=== PATIENT | female | born 1935 | race Hispanic/Latino ===

== ENCOUNTER 2017-03-30 23:31 | Inpatient (IN) | payer MEDICARE, OTHER ==
[2017-03-30] MEDS ORDERED: Sodium Chloride 0.9% 1,000 ML IV ONE (23:51)
--- NOTE | 2017-03-30 23:52 | C.PDOC ---
Chief Complaint (Nursing): Cardiac Arrest Past Medical History Vital Signs: Last Vital Signs Temp 97 F L 03/30/17 23:55 Pulse 87 03/30/17 23:36 Resp 12 03/30/17 23:36 BP 127/59 L 03/30/17 23:36 Pulse Ox 100 03/31/17 01:24 - Medical History PMH: HTN, Hypercholesterolemia, TIA Denies: Asthma, Chronic Kidney Disease Family History: States: Unknown Family Hx - Social History Hx Alcohol Use: No Hx Substance Use: No - Immunization History Hx Tetanus Toxoid Vaccination: No Hx Influenza Vaccination: No Hx Pneumococcal Vaccination: No ED Course And Treatment - Laboratory Results Result Diagrams: 03/31/17 01:15 03/30/17 23:55 O2 Sat by Pulse Oximetry: 100 - CT Scan/US CT Head Other Rad Studies (CT/US): Read By Radiologist, Radiology Report Reviewed CT/US Interpretation: IMPRESSION: No acute intracranial hemorrhage, or suspicious mass effect. Disposition Discussed With DrKeila: Mack Elliott Doctor Will See Patient In The: Hospital Counseled Patient/Family Regarding: Diagnosis - Disposition Disposition: HOSPITALIZED Disposition Time: 00:37 Condition: GUARDED - Clinical Impression Clinical Impression: Respiratory arrest, Cardiac arrest Critical Care Time - Critical Care Note Total Time (in mins): 30 Documented critical care: time excludes all time spent performing seperately billable procedures.
[2017-03-30] MEDS ORDERED: Sodium Chloride 0.9% 1,000 ML ONE (23:58)
[2017-03-31 00:15] LABS: BASO # 0.3 K/uL (0.0-0.2); BASO % 1.1 % (0.0-2.0); MEAN CORPUSCULAR HGB CONC 26.2 g/dL (33.0-37.0)
[2017-03-31 00:25] LABS: POTASSIUM 4.5 mmol/L (3.6-5.2)
[2017-03-31 00:28] LABS: BILIRUBIN,TOTAL 0.8 mg/dL (0.2-1.3); TOTAL PROTEIN 6.3 g/dL (6.3-8.3)
[2017-03-31 00:29] LABS: CALCIUM 7.6 mg/dl (8.6-10.4)
[2017-03-31 00:33] LABS: INR 1.2
[2017-03-31 00:40] LABS: TROPONIN I 0.055 ng/mL (0.00-0.120)
[2017-03-31 00:41] LABS: ABG MECHANICAL RATE 14; ATERIAL BLOOD GAS PEEP 5; DRAW SITE RB
[2017-03-31 00:43] LABS: EOS # 0.3 K/uL (0.0-0.7); EOS % 1.3 % (0.0-4.0); HEMATOCRIT 19.9 % (34.0-47.0); LYMPH % 28.2 % (20.0-40.0); MEAN CORPUSCULAR HEMOGLOBIN 19.4 pg (27.0-31.0); MEAN PLATELET VOLUME 8.2 fL (7.2-11.7); MONO # 0.8 K/uL (0.0-0.8); MONO % 3.4 % (0.0-10.0); NRBC % 0.5 % (0.0-2.0); PLATELET COUNT 405 K/uL (130-400); RED CELL DISTRIBUTION WIDTH 20.4 % (11.5-14.5); WHITE BLOOD COUNT 24.7 K/uL (4.8-10.8)
[2017-03-31 01:17] LABS: HEMATOCRIT 18.2 % (34.0-47.0); MEAN CELL VOLUME 71.4 fL (81.0-99.0); MEAN CORPUSCULAR HEMOGLOBIN 19.6 pg (27.0-31.0); MEAN CORPUSCULAR HGB CONC 27.4 g/dL (33.0-37.0); MEAN PLATELET VOLUME 7.3 fL (7.2-11.7); WHITE BLOOD COUNT 18.9 K/uL (4.8-10.8)
--- NOTE | 2017-03-31 01:23 | CP.PCM.HP ---
<Kaushik Nguyen - Last Filed: 03/31/17 05:18> History of Present Illness - History of Present Illness History of Present Illness: CC: Unresponsive patient HPI: 82yo Female with PMHx TIA, HTN, Hypercholesterolemia, Blepharospasm - brought in via EMS after being found unresponsive by her son in their apartment. All history conveyed by patients Son and Grandson. Patient was last seen at 20:30 this evening watching TV. No unusual events noted during this day. At 22:00, the patient was found face down into the couch, resting over the arm rest, with her walker tipper over next to her. The son believes she was walking back from the bathroom, but he did not hear anything unusual, and is unsure how long she was in that position. He notes that over the past week, his mother appeared more pale and seemed to move slower than usual. She fell after dinner yesterday, however he reports these falls occur periodically. He denies any LOC, head trauma, abnormal speech/behavior, or general injury following this fall. Once EMS arrived, she was found to be in cardio-pulmonary arrest. Per nursing report, they performed CPR for 15 minutes and administered 2 doses of epinephrin before regaining pulses. An LMA was inserted in the field. ED Course: Patient was intubated in the ED. She received NS 1L bolus, NS 100cc/ hr, and Protonix 40mg IVP. Patient will be transferred to ICU. She remains unresponsive. PMHx: TIA (2013, 2012, and 2 others), HTN, Hypercholesterolemia, Blepharospasm PSHx: Hip fracture 2011 Meds: f/u with [facility] (Plavix 75mg PO qd; Simvastatin; Metoprolol; Amlodipine) Allergies: PCNs FamHx: Mom of esophageal CA at 75; Father of [place] in 50's SocHx: quit Tobacco 1974. Smoked 1/2ppd x 20yrs; Family denied ETOH or illicit drug use; Lives in apt with Son; Retired bookkeeper receptionist. PMD: [place] Present on Admission - Present on Admission Any Indicators Present on Admission: No Review of Systems - Review of Systems Systems not reviewed;Unavailable: Acuity of Condition, Altered Mental Status ( patient is unresponsive) Past Patient History - Infectious Disease Hx of Infectious Diseases: None - Past Social History Smoking Status: Never Smoked - CARDIAC Hx Hypercholesterolemia: Yes Hx Hypertension: Yes - PULMONARY Hx Asthma: No - NEUROLOGICAL Hx Transient Ischemic Attacks (TIA): Yes - RENAL Hx Chronic Kidney Disease: No - INTEGUMENTARY Hx Dermatological Problems: No - MUSCULOSKELETAL/RHEUMATOLOGICAL Hx Musculoskeletal Disorders: No - PSYCHIATRIC Hx Substance Use: No - SURGICAL HISTORY Hx Cataract Extraction: Yes - ANESTHESIA Hx Anesthesia: Yes Hx Anesthesia Reactions: No Meds Allergies/Adverse Reactions: Allergies Allergy/AdvReac Type Severity Reaction Status Date / Time Penicillins Allergy Verified 03/30/17 23:43 Physical Exam - Constitutional Appears: No Acute Distress, Other (unresponsive) - Head Exam Head Exam: ATRAUMATIC, NORMAL INSPECTION - Eye Exam Eye Exam: absent: Conjunctival injection, EOMI, PERRL Pupil Exam: Fixed, Unequal. absent: PERRL Additional comments: -Left pupil dilated/fixed -Right pupil constricted, however responsive to light. -b/l corneal reflex intact. - ENT Exam ENT Exam: Mucous Membranes Dry - Neck Exam Neck exam: Negative for: Lymphadenopathy - Respiratory Exam Respiratory Exam: Clear to Auscultation Bilateral (transmitted sounds from respirator/intubation), NORMAL BREATHING PATTERN - Cardiovascular Exam Cardiovascular Exam: REGULAR RHYTHM, +S1, +S2, Systolic Murmur. absent: Rubs - GI/Abdominal Exam GI & Abdominal Exam: Distended (possibly from intubation), Normal Bowel Sounds, Soft Additional comments: - OG tube in place to help decompress air in stomach - Rectal Exam Rectal Exam: Bloody Stool (mild). absent: Black Stool - Extremities Exam Extremities exam: Positive for: pedal pulses present. Negative for: normal capillary refill, pedal edema Additional comments: -LE cool to palpation - Neurological Exam Neurological exam: Altered Additional comments: Patient unresponsive - Skin Skin Exam: Dry, Intact, Pallor Results - Vital Signs Recent Vital Signs: Last Vital Signs Temp 97 F L 03/30/17 23:55 Pulse 87 03/30/17 23:36 Resp 12 03/30/17 23:36 BP 127/59 L 03/30/17 23:36 Pulse Ox 100 03/31/17 00:37 - Labs Result Diagrams: 03/31/17 01:15 03/31/17 04:40 Labs: Laboratory Results - last 24 hr 03/30/17 03/30/17 03/30/17 23:54 23:55 23:55 WBC 24.7 H RBC 2.69 L Hgb 5.2 L* Hct 19.9 L MCV 74.0 L MCH 19.4 L MCHC 26.2 L RDW 20.4 H Plt Count 405 H MPV 8.2 Neut % (Auto) 66.0 Lymph % (Auto) 28.2 [place] % (Auto) 3.4 Eos % (Auto) 1.3 Baso % (Auto) 1.1 Neut # 16.3 H Lymph # 7.0 H [place] # 0.8 Eos # 0.3 Baso # 0.3 H PT 13.9 H INR 1.2 APTT 49 H Puncture Site pCO2 pO2 HCO3 ABG pH ABG Total CO2 ABG O2 Saturation ABG Base Excess Hernandez Test ABG Potassium A-a O2 Difference Respiratory Index Glucose Lactate Mechanical Rate FiO2 Tidal Volume PEEP Crit Value Called To Crit Value Called By Crit Value Read Back Blood Gas Notified Time Sodium Potassium Chloride Anion Gap BUN Creatinine Est GFR ( Amer) Est GFR (Non-Af Amer) POC Glucose (mg/dL) 286 H Random Glucose Calcium Total Bilirubin AST ALT Alkaline Phosphatase Troponin I Total Protein Albumin Globulin Albumin/Globulin Ratio Arterial Blood Potassium 03/30/17 03/31/17 23:55 00:37 WBC RBC Hgb Hct MCV MCH MCHC RDW Plt Count MPV Neut % (Auto) Lymph % (Auto) [place] % (Auto) Eos % (Auto) Baso % (Auto) Neut # Lymph # [place] # Eos # Baso # PT INR APTT Puncture Site Rb pCO2 40 pO2 487 H HCO3 12.4 L ABG pH 7.11 L* ABG Total CO2 13.9 L ABG O2 Saturation 97.6 ABG Base Excess -16.2 L Hernandez Test Na ABG Potassium 4.4 A-a O2 Difference 176.0 Respiratory Index 0.4 Glucose 239 H Lactate 9.4 H* Mechanical Rate 14 FiO2 100.0 Tidal Volume 450 PEEP 5 Crit Value Called To Dr. bailon Crit Value Called By Daniel aircraft painter Crit Value Read Back Y Blood Gas Notified Time 41 Sodium 138 139.0 Potassium 4.5 Chloride 104 110.0 H Anion Gap 29 H BUN 10 Creatinine 1.1 Est GFR ( Amer) 58 Est GFR (Non-Af Amer) 48 POC Glucose (mg/dL) Random Glucose 268 H Calcium 7.6 L Total Bilirubin 0.8 AST 81 H ALT 22 Alkaline Phosphatase 74 Troponin I 0.0550 Total Protein 6.3 Albumin 3.1 L Globulin 3.2 Albumin/Globulin Ratio 1.0 Arterial Blood Potassium 4.4 Assessment & Plan - Assessment and Plan (Free Text) Assessment: Note: Patient sent directly to ICU from ED. Cardio Pulmonary Arrest - CT head w/o contrast - No acute intracranial hemorrhage, or suspicious mass effect. - Intubated in ED. - Hx TIA (2013, 2011, and 2 others) - no cooling since drop of hb - f/u echocardiogram - Hold asa - no b-blockers (bradycardia) or radha - most likely has ARF even though RF seems to be wnl, no baseline available. Anemia - Hgb 5.2, Hct 19.9, MCV 74 - transfuse 3 Units of blood - most likely drop slowly over a few days, lactate most likely high due to dehydration/ arrest - coagulation profile wnl Encephalopathy - very poor neurological exam - recent twitching (bad sign) - f/u eeg - f/u MRI/MRA head and neck in am Acute metabolic acidosis - 150 mEq of NaHCO3, bicarbonate drip - recheck bmp with electrolytes Leukocytosis WBC 24.7. Astreonam 1GM IVPB Q8H Diarrhea - flexiseal - f/u cultures Hyperglycemia - glucose 286 - most likely DM since BS elevated, note taking any meds Hx Hypertension - meds unknown. Possibly Metoprolol, Amlodipine Hx Hypercholesterolemia - meds unknown. Possibly Simvastatin. Prophylaxis - SCDs - Protonix 40mg IVP qd - Date & Time Date: 03/31/17 Time: 00:20 <Mack Elliott P - Last Filed: 04/06/17 19:45> Results - Vital Signs Recent Vital Signs: Last Vital Signs Temp 97.6 F 04/03/17 12:00 Pulse 91 H 04/03/17 12:01 Resp 15 04/03/17 12:01 BP 176/89 H 04/03/17 12:01 Pulse Ox 100 04/03/17 12:01 - Labs Result Diagrams: 04/03/17 06:43 04/03/17 06:43 Attending/Attestation - Attestation I have personally seen and examined this patient.: Yes I have fully participated in the care of the patient.: Yes I have reviewed all pertinent clinical information: Yes
[2017-03-31] MEDS ORDERED: SODIUM BICARBONATE IV SCH (02:30)
[2017-03-31] MEDS ORDERED: DEXTROSE IV SCH (02:30)
[2017-03-31] MEDS ORDERED: WATER IV SCH (02:30)
[2017-03-31 02:39] LABS: ABG MECHANICAL RATE 14; ATERIAL BLOOD GAS PEEP 5; DRAW SITE RB
[2017-03-31] MEDS ORDERED: Sodium Bicarbonate (8.4%) 50 Meq Syringe IVP ONE (02:52)
--- NOTE | 2017-03-31 02:52 | CP.PCM.CON ---
History of Present Illness - History of Present Illness History of Present Illness: Patient seen and examined in ICU. History obtained from notes and family. As per story patient was found by son at 2200 facing down into the arm rest of the couch, last seen awake at 2030 watching TV. As per the family she has been in her usual state of health, the only change noted by the family over the past week is looking more pale and moving slower than usual. She lives with the family and is able to take care of ADL and walks with a walker. Last hospitalization about 3 years back. Had one twitching movement of face when stimulated in ICU, lasted a couple of seconds, stopped on it's own. EMS was called, found the patient in asystole, performed CPR for 15 mn and gave 2 rounds of epinephrine before ROSC, LMA inserted in the field and intubated in ER. On my exam no response to noise/deep painful stimuli, breaths over the ventilator, pupils not reactive to light, left pupil 4 mm, right pupil 2 mm, good corneal reflex, very very weak cough, no gag. She has had 3 bm of brown stool, creamy. Labs remarkable for metabolic acidosis, anemia. ros unable Allergic to PNC, her face gets very swollen PMH: TIA 4 times, most recent in 2011 and 2013 HTN HLD Blepharospasm No hx of DM, but BS elevated social: ex-smoker, smoked for 20 years FH: mother form esophageal CA at 75 father from [place] in his 50's home meds: plavix 75 mg dailyl simvastatin metoprolol amlodipine benadryl cetrizine clonazepam stool softener pe: bp 96/54, hr 55 bpm, rr 14 bpm, O2 97% on 30% FiO2, afebrile 82 elderly lady, looks pale s1, s2 sinus bradycardia, systolic aortic murmur lungs good bilateral air of entry abdomen global, soft, non tender, no masses legs with bilateral pitting edema skin dry, no openings neurological exam as described above a/p: cardiac arrest: no cooling since drop of hb and noted pale/initial rhythm asystole. echocardiogram, most likely DM since BS elevated, nota taking any meds , for now hold asa, only stating, no b-blockers (bradycardia) or radha, most likely has ARF even though RF seems to be wnl, no baselin available. Encephalopathy, very poor neurological, exam, recent twitching bad sign, eeg, MRI/MRA head and neck in am Anemia: most likely drop slowly over a few days, lactate most likely high due to dehydration, arrest, transfuse 3 Units of blood now, coagulation profile wnl Diarrhea: flexiseal, send cultures Cover with broad expecturm antibiotics: send UA, blood culture, wbc count coming down, could be multifactoria. I expect lactate to come down with blood. Acute metabolic acidosis: 150 mEq of NaHCO3, bicarbonate drip, recheck bmp with electrolytes Past Patient History - Infectious Disease Hx of Infectious Diseases: None - Past Social History Smoking Status: Never Smoked - CARDIAC Hx Hypercholesterolemia: Yes Hx Hypertension: Yes - PULMONARY Hx Asthma: No - NEUROLOGICAL Hx Transient Ischemic Attacks (TIA): Yes - RENAL Hx Chronic Kidney Disease: No - INTEGUMENTARY Hx Dermatological Problems: No - MUSCULOSKELETAL/RHEUMATOLOGICAL Hx Musculoskeletal Disorders: No - PSYCHIATRIC Hx Substance Use: No - SURGICAL HISTORY Hx Cataract Extraction: Yes - ANESTHESIA Hx Anesthesia: Yes Hx Anesthesia Reactions: No Meds Allergies/Adverse Reactions: Allergies Allergy/AdvReac Type Severity Reaction Status Date / Time Penicillins Allergy Verified 03/30/17 23:43 - Medications Medications: Current Medications Sodium Bicarbonate 150 ml/ (Dextrose) 1,050 mls @ 100 mls/hr IV .[id number] [facility] Aztreonam 1 gm/ Sodium (Chloride) 100 mls @ 100 mls/hr IVPB Q8H [facility] Vancomycin HCl 1,000 mg/ (Sodium Chloride) 250 mls @ 166.6 mls/hr IVPB Q24H [facility] Pantoprazole Sodium (Protonix Inj) 40 mg IVP DAILY [facility] Results - Vital Signs Recent Vital Signs: Last Vital Signs Temp 97 F L 03/30/17 23:55 Pulse 87 03/30/17 23:36 Resp 12 03/30/17 23:36 BP 127/59 L 03/30/17 23:36 Pulse Ox 100 03/31/17 01:37 - Labs Result Diagrams: 03/31/17 01:15 03/30/17 23:55 Labs: Laboratory Results - last 24 hr 03/31/17 03/31/17 01:15 01:37 WBC 18.9 H RBC 2.54 L Hgb 5.0 L* Hct 18.2 L MCV 71.4 L D MCH 19.6 L MCHC 27.4 L RDW 20.0 H Plt Count 364 MPV 7.3 Blood Type A POSITIVE Blood Type Confirm A POSITIVE Antibody Screen Negative
[2017-03-31] MEDS ORDERED: Sodium Bicarbonate (8.4%) 50 Meq Syringe ONE (02:59)
[2017-03-31] MEDS: DEXTROSE IV SCH (03:10)
[2017-03-31] MEDS: WATER IV SCH (03:10)
[2017-03-31] MEDS: SODIUM BICARBONATE IV SCH (03:10)
[2017-03-31 04:56] LABS: CHLORIDE 108 mmol/L (98-107); SODIUM 142 mmol/L (132-148)
[2017-03-31 04:59] LABS: BLOOD UREA NITROGEN 12 mg/dL (7-17); CARBON DIOXIDE 20 mmol/L (22-30); GFR AFRICAN-AMERICAN > 60; GLUCOSE,RANDOM 200 mg/dL (65-105)
[2017-03-31 05:00] LABS: CALCIUM 6.4 mg/dl (8.6-10.4); MAGNESIUM 1.9 mg/dL (1.6-2.3); PHOSPHOROUS 5.2 mg/dL (2.5-4.5)
[2017-03-31] MEDS: Aztreonam 1 GM in Sodium Chloride 0.9% 100 ML IVPB SCH ×3 (05:15→19:37)
[2017-03-31 05:18] LABS: ABG MECHANICAL RATE 14; ATERIAL BLOOD GAS PEEP 5; DRAW SITE RB
[2017-03-31 06:04] LABS: EOSINOPHIL 1 % (0-4); MYELOCYTE 1 % (0-0); NEUTROPHIL 58 % (50-75); NUCLEATED RED BLOOD CELL 1 % (0-0); TOTAL CELLS COUNTED 100
[2017-03-31 06:08] LABS: LARGE PLATELETS PRESENT
[2017-03-31 06:54] LABS: RBC URINE 4 /hpf (0-3); URINE BACTERIA OCC (<OCC); URINE BILIRUBIN NEGATIVE (NEGATIVE); URINE BLOOD 3+ (NEGATIVE); URINE COLOR Yellow (YELLOW); URINE GLUCOSE (UA) NORMAL (Normal); URINE HYALINE CAST 0-2 /lpf (0-2); URINE KETONE NEGATIVE (NEGATIVE); URINE LEUKOCYTE ESTERASE TRACE Leu/uL (Negative); URINE PROTEIN 1+ mg/dL (NEGATIVE); WBC URINE 12 /hpf (0-5)
[2017-03-31 06:58] LABS: BASO % 0.2 % (0.0-2.0); HEMATOCRIT 31.2 % (34.0-47.0); LYMPH # 0.7 K/uL (1.0-4.3); LYMPH % 3.4 % (20.0-40.0); MEAN CORPUSCULAR HEMOGLOBIN 24.1 pg (27.0-31.0); MEAN CORPUSCULAR HGB CONC 31.3 g/dL (33.0-37.0); MEAN PLATELET VOLUME 7.5 fL (7.2-11.7); MONO # 0.9 K/uL (0.0-0.8); MONO % 4.3 % (0.0-10.0); NRBC % 0.1 % (0.0-2.0); PLATELET COUNT 285 K/uL (130-400); WHITE BLOOD COUNT 21.4 K/uL (4.8-10.8)
[2017-03-31 07:35] LABS: CHLORIDE 106 mmol/L (98-107); SODIUM 143 mmol/L (132-148)
[2017-03-31 07:36] LABS: POTASSIUM 3.2 mmol/L (3.6-5.2)
[2017-03-31 07:38] LABS: CARBON DIOXIDE 24 mmol/L (22-30); GFR AFRICAN-AMERICAN > 60
[2017-03-31 07:39] LABS: BLOOD UREA NITROGEN 13 mg/dL (7-17); CALCIUM 6.5 mg/dl (8.6-10.4); GLUCOSE,RANDOM 225 mg/dL (65-105)
--- NOTE | 2017-03-31 07:54 | CT ---
PROCEDURE: CT HEAD WITHOUT CONTRAST. HISTORY: Unresponsive, possible head injury COMPARISON: None available. TECHNIQUE: Axial computed tomography images were obtained through the head/brain without intravenous contrast. Radiation dose: Total exam DLP = 879 mGy-cm. This CT exam was performed using one or more of the following dose reduction techniques: Automated exposure control, adjustment of the mA and/or kV according to patient size, and/or use of iterative reconstruction technique. FINDINGS: HEMORRHAGE: No intracranial hemorrhage. BRAIN: No mass effect or edema. Scattered focal lucencies in the subcortical and periventricular white matter suggestive for possible severe chronic microvascular ischemic change. VENTRICLES: Age appropriate ventriculomegaly. CALVARIUM: Unremarkable. PARANASAL SINUSES: Unremarkable as visualized. No significant inflammatory changes. MASTOID AIR CELLS: Unremarkable as visualized. No inflammatory changes. OTHER FINDINGS: None. IMPRESSION: No acute intracranial abnormality. Scattered focal lucencies in the subcortical and periventricular white matter suggestive for possible severe chronic microvascular ischemic change. Correlation with MRI may be helpful if clinically indicated. Age appropriate ventriculomegaly. These findings were preliminarily reported at 12:30 a.m. on 03/31/[address] Emma Levin from [facility].
--- NOTE | 2017-03-31 09:03 | RAD ---
PROCEDURE: CHEST RADIOGRAPH, 1 VIEW HISTORY: patient on a vent COMPARISON: 03/30/2017 FINDINGS: LUNGS: Endotracheal tube extending into the mid thoracic trachea. NG tube extending into the stomach. Biapical pleural thickening with upper lobe granulomatous changes. Somewhat ill-defined nodularity projecting over the right lung apex. Bilateral hilar prominence ; left greater than right. Tortuous ectatic aorta. Venous congestion. Bibasilar airspace opacities with trace bilateral pleural effusions. PLEURA: As above. CARDIOVASCULAR: Cardiomegaly. OSSEOUS STRUCTURES: Degenerative changes in the spine and shoulders. VISUALIZED UPPER ABDOMEN: Normal. OTHER FINDINGS: None. IMPRESSION: Endotracheal tube extending into the mid thoracic trachea. NG tube extending into the stomach. Biapical pleural thickening with upper lobe granulomatous changes. Somewhat ill-defined nodularity projecting over the right lung apex. Bilateral hilar prominence ; left greater than right. Tortuous ectatic aorta. Venous congestion. Bibasilar airspace opacities with trace bilateral pleural effusions.
--- NOTE | 2017-03-31 09:21 | RAD ---
HISTORY: POST CARDIAC ARREST COMPARISON: 03/31/2017 FINDINGS: LUNGS: Endotracheal tube extending into the right mainstem bronchus. Retraction approximately 2.5 centimeters is recommended. Venous congestion. Patchy ill-defined consolidative changes at the left lung base as well as within the right suprahilar region. Biapical pleural thickening with upper lobe granulomatous changes. PLEURA: As above. CARDIOVASCULAR: Cardiomegaly. Tortuous ectatic aorta. OSSEOUS STRUCTURES: No significant abnormalities. VISUALIZED UPPER ABDOMEN: Gaseous distention of the bowel and stomach. OTHER FINDINGS: None. IMPRESSION: Endotracheal tube extending into the right mainstem bronchus. Retraction approximately 2.5 centimeters is recommended. Venous congestion. Patchy ill-defined consolidative changes at the left lung base as well as within the right suprahilar region. Biapical pleural thickening with upper lobe granulomatous changes.
[2017-03-31 09:25] LABS: NEUTROPHIL 85 % (50-75); TOTAL CELLS COUNTED 100
--- NOTE | 2017-03-31 11:11 | CP.PCM.CON ---
History of Present Illness - History of Present Illness History of Present Illness: Palliative consult requested by Stacie FINK Reason; Goals of care discussion Patient is a 82 yo female admitted from home , where was found unresponsive by her son. As per ER report, son noticed decrease in activity over the last week. The day prior the admission patient fail at home after dinner. Son denies any injuries and states she has been falling a lot at home. Patient was using walker to ambulate. At home patient found in respiratory distress and was intubated on the field. In ED Hb 5.2, WBC 24.7. After the course of IV antibiotics and blood transfusion , p Hb yany up to 9.8 and WBC dropped at 21.4. PMH: TIA. HTN, Hip Fx 2011, quit smoking 1974 Soc. Hx: , lives with her son Santos Olvera Hx: mother from [place]ophagial [place], father from [place] in his 50s Review of Systems - Review of Systems Systems not reviewed;Unavailable: Altered Mental Status, Intubated Past Patient History - Infectious Disease Hx of Infectious Diseases: None - Past Medical History & Family History Past Medical History?: Yes - Past Social History Smoking Status: Never Smoked - CARDIAC Hx Hypercholesterolemia: Yes Hx Hypertension: Yes - PULMONARY Hx Asthma: No - NEUROLOGICAL Hx Transient Ischemic Attacks (TIA): Yes - HEENT Hx HEENT Problems: Yes Other/Comment: glasses for reading - RENAL Hx Chronic Kidney Disease: No - ENDOCRINE/METABOLIC Hx Endocrine Disorders: No - HEMATOLOGICAL/ONCOLOGICAL Hx Blood Disorders: No - INTEGUMENTARY Hx Dermatological Problems: No - MUSCULOSKELETAL/RHEUMATOLOGICAL Hx Musculoskeletal Disorders: No - GASTROINTESTINAL Hx Bowel Surgery: No - GENITOURINARY/GYNECOLOGICAL Hx Genitourinary Disorders: No - PSYCHIATRIC Hx Substance Use: No - SURGICAL HISTORY Hx Cataract Extraction: Yes - ANESTHESIA Hx Anesthesia: Yes Hx Anesthesia Reactions: No Meds Allergies/Adverse Reactions: Allergies Allergy/AdvReac Type Severity Reaction Status Date / Time Penicillins Allergy Verified 03/30/17 23:43 - Medications Medications: Current Medications Sodium Bicarbonate 150 ml/ (Dextrose) 1,050 mls @ 100 mls/hr IV .[id number] [facility] Last Admin: 03/31/17 03:10 Dose: 100 mls/hr Aztreonam 1 gm/ Sodium (Chloride) 100 mls @ 100 mls/hr IVPB Q8H [facility] Last Admin: 03/31/17 10:10 Dose: 100 mls/hr Vancomycin HCl 1,000 mg/ (Sodium Chloride) 250 mls @ 166.6 mls/hr IVPB Q24H [facility] Last Admin: 03/31/17 03:30 Dose: 166.6 mls/hr Pantoprazole Sodium (Protonix Inj) 40 mg IVP DAILY [facility] Last Admin: 03/31/17 10:39 Dose: 40 mg Physical Exam - Constitutional Appears: In Acute Distress, Chronically Ill - Head Exam Head Exam: ATRAUMATIC - Eye Exam Pupil Exam: Fixed, Irregular - ENT Exam ENT Exam: Mucous Membranes Dry Additional comments: ET tube, no Gag reflex - Neck Exam Neck exam: Positive for: Normal Inspection - Respiratory Exam Additional comments: On MV support - Cardiovascular Exam Cardiovascular Exam: REGULAR RHYTHM, +S1, +S2 - GI/Abdominal Exam GI & Abdominal Exam: Hypoactive Bowel Sounds - Rectal Exam Rectal Exam: Deferred - Extremities Exam Extremities exam: Positive for: normal inspection - Back Exam Back exam: NORMAL INSPECTION - Neurological Exam Neurological exam: Motor Sensory Deficit Additional comments: involuntary jerky movements - Psychiatric Exam Psychiatric exam: Flat Affect - Skin Skin Exam: Pallor Results - Vital Signs Recent Vital Signs: Last Vital Signs Temp 93.6 F L 03/31/17 08:00 Pulse 62 03/31/17 08:35 Resp 15 03/31/17 08:20 BP 130/57 L 03/31/17 08:01 Pulse Ox 100 03/31/17 08:20 - Labs Result Diagrams: 03/31/17 06:51 03/31/17 06:51 Labs: Laboratory Results - last 24 hr 03/31/17 03/31/17 03/31/17 01:15 01:37 02:34 WBC 18.9 H RBC 2.54 L Hgb 5.0 L* Hct 18.2 L MCV 71.4 L D MCH 19.6 L MCHC 27.4 L RDW 20.0 H Plt Count 364 MPV 7.3 Neut % (Auto) Lymph % (Auto) [place] % (Auto) Eos % (Auto) Baso % (Auto) Neut # Lymph # [place] # Eos # Baso # Neutrophils % (Manual) Band Neutrophils % Lymphocytes % (Manual) Monocytes % (Manual) Platelet Estimate Hypochromasia (manual) Poikilocytosis (manual Anisocytosis (manual) Mao Cells Puncture Site Rb pCO2 36 pO2 97 HCO3 14.4 L ABG pH 7.19 L* ABG Total CO2 14.9 L ABG O2 Saturation 97.3 ABG Base Excess -13.5 L Hernandez Test Na ABG Potassium 3.8 A-a O2 Difference 72.0 Respiratory Index 0.7 Sodium 141.0 Chloride 122.0 H Glucose 158 H Lactate 4.4 H* Mechanical Rate 14 FiO2 30.0 Tidal Volume 450 PEEP 5 Crit Value Called To Dr. gonzaelz Crit Value Called By Daniel able bodied seaman Crit Value Read Back Y Blood Gas Notified Time 238 Potassium Carbon Dioxide Anion Gap BUN Creatinine Est GFR ( Amer) Est GFR (Non-Af Amer) Random Glucose Hemoglobin A1c Calcium Phosphorus Magnesium Arterial Blood Potassium 3.8 Urine Color Urine Clarity Urine pH Ur Specific [place] Urine Protein Urine Glucose (UA) Urine Ketones Urine Blood Urine Nitrate Urine Bilirubin Urine Urobilinogen Ur Leukocyte Esterase Urine WBC (Auto) Urine RBC (Auto) Ur Squamous Epith Cells Urine Bacteria Hyaline Casts Stool Occult Blood Blood Type A POSITIVE Blood Type Confirm A POSITIVE Antibody Screen Negative 03/31/17 03/31/17 03/31/17 04:40 05:11 06:29 WBC RBC Hgb Hct MCV MCH MCHC RDW Plt Count MPV Neut % (Auto) Lymph % (Auto) [place] % (Auto) Eos % (Auto) Baso % (Auto) Neut # Lymph # [place] # Eos # Baso # Neutrophils % (Manual) Band Neutrophils % Lymphocytes % (Manual) Monocytes % (Manual) Platelet Estimate Hypochromasia (manual) Poikilocytosis (manual Anisocytosis (manual) [place] Cells Puncture Site Rb pCO2 42 pO2 68 L HCO3 22.9 ABG pH 7.35 ABG Total CO2 24.5 ABG O2 Saturation 96.3 ABG Base Excess -2.4 L Hernandez Test Na ABG Potassium 3.3 L A-a O2 Difference 93.0 Respiratory Index 1.4 Sodium 142 144.0 Chloride 108 H 115.0 H Glucose 220 H Lactate 2.8 H Mechanical Rate 14 FiO2 30.0 Tidal Volume 450 PEEP 5 Crit Value Called To Crit Value Called By Crit Value Read Back Blood Gas Notified Time Potassium 4.0 Carbon Dioxide 20 L Anion Gap 18 BUN 12 Creatinine 0.9 Est GFR ( Amer) > 60 Est GFR (Non-Af Amer) 60 Random Glucose 200 H Hemoglobin A1c Calcium 6.4 L Phosphorus 5.2 H Magnesium 1.9 Arterial Blood Potassium 3.3 L Urine Color Yellow Urine Clarity Hazy Urine pH 5.0 Ur Specific [place] 1.010 Urine Protein 1+ H Urine Glucose (UA) Normal Urine Ketones Negative Urine Blood 3+ H Urine Nitrate Negative Urine Bilirubin Negative Urine Urobilinogen 4.0 H Ur Leukocyte Esterase Trace Urine WBC (Auto) 12 H Urine RBC (Auto) 4 H Ur Squamous Epith Cells < 1 Urine Bacteria Occ H Hyaline Casts 0-2 Stool Occult Blood Blood Type Blood Type Confirm Antibody Screen 03/31/17 03/31/17 03/31/17 06:51 06:51 06:51 WBC 21.4 H RBC 4.05 Hgb 9.8 L D Hct 31.2 L MCV 77.0 L D MCH 24.1 L MCHC 31.3 L RDW 23.0 H Plt Count 285 MPV 7.5 Neut % (Auto) 92.1 H Lymph % (Auto) 3.4 L [place] % (Auto) 4.3 Eos % (Auto) 0.0 Baso % (Auto) 0.2 Neut # 19.7 H Lymph # 0.7 L [place] # 0.9 H Eos # 0.0 Baso # 0.0 Neutrophils % (Manual) 85 H Band Neutrophils % 9 H Lymphocytes % (Manual) 2 L Monocytes % (Manual) 4 Platelet Estimate Normal Hypochromasia (manual) Slight Poikilocytosis (manual Slight Anisocytosis (manual) Slight [place] Cells Slight Puncture Site pCO2 pO2 HCO3 ABG pH ABG Total CO2 ABG O2 Saturation ABG Base Excess Hernandez Test ABG Potassium A-a O2 Difference Respiratory Index Sodium 143 Chloride 106 Glucose Lactate Mechanical Rate FiO2 Tidal Volume PEEP Crit Value Called To Crit Value Called By Crit Value Read Back Blood Gas Notified Time Potassium 3.2 L Carbon Dioxide 24 Anion Gap 16 BUN 13 Creatinine 0.8 Est GFR ( Amer) > 60 Est GFR (Non-Af Amer) > 60 Random Glucose 225 H Hemoglobin A1c 5.5 Calcium 6.5 L Phosphorus Magnesium Arterial Blood Potassium Urine Color Urine Clarity Urine pH Ur Specific [place] Urine Protein Urine Glucose (UA) Urine Ketones Urine Blood Urine Nitrate Urine Bilirubin Urine Urobilinogen Ur Leukocyte Esterase Urine WBC (Auto) Urine RBC (Auto) Ur Squamous Epith Cells Urine Bacteria Hyaline Casts Stool Occult Blood Blood Type Blood Type Confirm Antibody Screen 03/31/17 07:49 WBC RBC Hgb Hct MCV MCH MCHC RDW Plt Count MPV Neut % (Auto) Lymph % (Auto) [place] % (Auto) Eos % (Auto) Baso % (Auto) Neut # Lymph # [place] # Eos # Baso # Neutrophils % (Manual) Band Neutrophils % Lymphocytes % (Manual) Monocytes % (Manual) Platelet Estimate Hypochromasia (manual) Poikilocytosis (manual Anisocytosis (manual) Mao Cells Puncture Site pCO2 pO2 HCO3 ABG pH ABG Total CO2 ABG O2 Saturation ABG Base Excess Hernandez Test ABG Potassium A-a O2 Difference Respiratory Index Sodium Chloride Glucose Lactate Mechanical Rate FiO2 Tidal Volume PEEP Crit Value Called To Crit Value Called By Crit Value Read Back Blood Gas Notified Time Potassium Carbon Dioxide Anion Gap BUN Creatinine Est GFR ( Amer) Est GFR (Non-Af Amer) Random Glucose Hemoglobin A1c Calcium Phosphorus Magnesium Arterial Blood Potassium Urine Color Urine Clarity Urine pH Ur Specific [place] Urine Protein Urine Glucose (UA) Urine Ketones Urine Blood Urine Nitrate Urine Bilirubin Urine Urobilinogen Ur Leukocyte Esterase Urine WBC (Auto) Urine RBC (Auto) Ur Squamous Epith Cells Urine Bacteria Hyaline Casts Stool Occult Blood Negative Blood Type Blood Type Confirm Antibody Screen Assessment & Plan - Assessment and Plan (Free Text) Assessment: Palliative consult Code status Full Code; no advance directive on chart. PPS 0%. ROS unobtainable due to condition. I reviewed medical charts, all diagnostic studies, examined patient in the bed and discussed goals of care with her son Silvio, at bed side. ROS obtained from the son. Patient is unresponsive to verbal stimuli with some response to tactile stimuli and involuntary jerky movements. Pupils are fixed and irregular, left > right. There is no passive ROM, muscles are flaccid.Skin looks very pale, despite Hb 9.8 this morning. Sclera are pale. Abdomen is soft, patient incontinent of bowel and bladder, BM X 1 at time of exam. I reviewed patient's clinical presentation with her son and updated him with most recent test done. The MRI/MRA was cancelled this morning as Doctors were under the impression that respiratory arrest was caused by severe anemia; CT head negative acute findings. I elicited his feelings regrading his mother;s presentation and yany my concern about quality of life issues. Mr. Flowers agreed that his mother's health was slowly declining lately. He understands that his mother may be nearing end of her life and would like her to be kept comfortable. If it would come to the point that patient would not be able to tolerate weaning of the MV, Mr. Flowers would consider allowing her natural . We agreed to fallow up patient's progress in the next couple of days and revisit the Code status topic again. Impression * Patient is S/P respiratory arrest, on MV * Neuro exam is very poor, with fixed pupils and absent gag reflex * Patient looks very pale, Hb 9.8. patient may have some GI bleed * Son Silvio is open to discus allowing natural if patient does not tolerate weaning from the MV Suggestion * Would check H&H now and in am * Would consider neuro consult * Will fallow up on Code status discussion with the son based on further studies * Patient should be DNR, as CPR would not bring about any benefices for this patient, in case she Codes Thank you for including me in care of this patient.
--- NOTE | 2017-03-31 19:00 | CP.PCM.PN ---
<Adriana Kline - Last Filed: 03/31/17 18:58> Subjective - Date & Time of Evaluation Date of Evaluation: 03/31/17 Time of Evaluation: 09:00 - Subjective Subjective: LACTATE LEVEL IS A REFLECTION OF CARDIAC ARREST, DEHYDRATION, NOT A TRUE SIGN OF SEPSIS. NO CODE SEPSIS. Objective - Vital Signs/Intake and Output Vital Signs (last 24 hours): Temp Pulse Resp BP Pulse Ox 98.0 F 65 15 152/63 H 100 03/31/17 16:00 03/31/17 18:30 03/31/17 18:30 03/31/17 18:01 03/31/17 18:30 Intake and Output: 03/31/17 03/31/17 06:59 18:59 Intake Total 1725 1275 Output Total 550 150 Balance 1175 1125 - Medications Medications: Current Medications Sodium Bicarbonate 150 ml/ (Dextrose) 1,050 mls @ 100 mls/hr IV .[id number] [facility] Last Admin: 03/31/17 03:10 Dose: 100 mls/hr Aztreonam 1 gm/ Sodium (Chloride) 100 mls @ 100 mls/hr IVPB Q8H [facility] Last Admin: 03/31/17 10:10 Dose: 100 mls/hr Vancomycin HCl 1,000 mg/ (Sodium Chloride) 250 mls @ 166.6 mls/hr IVPB Q24H [facility] Last Admin: 03/31/17 03:30 Dose: 166.6 mls/hr Pantoprazole Sodium (Protonix Inj) 40 mg IVP DAILY [facility] Last Admin: 03/31/17 10:39 Dose: 40 mg - Labs Labs: 03/31/17 06:51 03/31/17 06:51 PT 13.9 SECONDS (9.7-12.2) H 03/30/17 23:55 INR 1.2 03/30/17 23:55 APTT 49 SECONDS (21-34) H 03/30/17 23:55 <Tino Brand - Last Filed: 03/31/17 19:17> Objective - Vital Signs/Intake and Output Vital Signs (last 24 hours): Temp Pulse Resp BP Pulse Ox 98.0 F 65 15 152/63 H 100 03/31/17 16:00 03/31/17 18:30 03/31/17 18:30 03/31/17 18:01 03/31/17 18:30 Intake and Output: 03/31/17 04/01/17 18:59 06:59 Intake Total 1275 Output Total 150 Balance 1125 - Medications Medications: Current Medications Sodium Bicarbonate 150 ml/ (Dextrose) 1,050 mls @ 100 mls/hr IV .[id number] [facility] Last Admin: 03/31/17 03:10 Dose: 100 mls/hr Aztreonam 1 gm/ Sodium (Chloride) 100 mls @ 100 mls/hr IVPB Q8H [facility] Last Admin: 03/31/17 10:10 Dose: 100 mls/hr Vancomycin HCl 1,000 mg/ (Sodium Chloride) 250 mls @ 166.6 mls/hr IVPB Q24H [facility] Last Admin: 03/31/17 03:30 Dose: 166.6 mls/hr Pantoprazole Sodium (Protonix Inj) 40 mg IVP DAILY [facility] Last Admin: 03/31/17 10:39 Dose: 40 mg - Labs Labs: 03/31/17 06:51 03/31/17 06:51 PT 13.9 SECONDS (9.7-12.2) H 03/30/17 23:55 INR 1.2 03/30/17 23:55 APTT 49 SECONDS (21-34) H 03/30/17 23:55 Attending/Attestation - Attestation I have personally seen and examined this patient.: Yes I have fully participated in the care of the patient.: Yes I have reviewed all pertinent clinical information, including history, physical exam and plan: Yes Notes (Text): 03/31/17 19:17 Patient currently anoxic discussed with the family during the rounds discussed plan as noted
[2017-04-01] MEDS: DEXTROSE IV SCH ×3 (00:45→11:20)
[2017-04-01] MEDS: SODIUM BICARBONATE IV SCH ×3 (00:45→11:20)
[2017-04-01] MEDS: WATER IV SCH ×3 (00:45→11:20)
[2017-04-01] MEDS: Aztreonam 1 GM in Sodium Chloride 0.9% 100 ML IVPB SCH ×3 (02:34→17:29)
[2017-04-01 04:28] LABS: ABG MECHANICAL RATE 14; ARTERIAL BLOOD HGB O2 SAT 95.5 % (95.0-98.0); ATERIAL BLOOD GAS PEEP 5; CARBOXYHEMOGLOBIN 0.8 % (0.5-1.5); DRAW SITE RB; HHB 2.4 % (0.0-5.0); METHEMOGLOBIN 1.2 % (0.0-3.0)
[2017-04-01 06:39] LABS: BASO # 0.1 K/uL (0.0-0.2); BASO % 0.2 % (0.0-2.0); HEMATOCRIT 34.1 % (34.0-47.0); LYMPH # 1.4 K/uL (1.0-4.3); MEAN CELL VOLUME 74.2 fL (81.0-99.0); MEAN CORPUSCULAR HEMOGLOBIN 23.5 pg (27.0-31.0); MEAN CORPUSCULAR HGB CONC 31.7 g/dL (33.0-37.0); MEAN PLATELET VOLUME 8.3 fL (7.2-11.7); MONO # 1.5 K/uL (0.0-0.8); MONO % 5.2 % (0.0-10.0); NRBC % 0.1 % (0.0-2.0); PLATELET COUNT 294 K/uL (130-400); RED CELL DISTRIBUTION WIDTH 23.8 % (11.5-14.5); WHITE BLOOD COUNT 28.6 K/uL (4.8-10.8)
[2017-04-01 06:55] LABS: CHLORIDE 97 mmol/L (98-107); SODIUM 136 mmol/L (132-148)
[2017-04-01 06:57] LABS: ALB/GLOB RATIO 0.9 (1.0-2.1); ALKALINE PHOSPHATASE 89 U/L (38-126); AST/SGOT 169 U/L (14-36); BILIRUBIN,TOTAL 1.5 mg/dL (0.2-1.3); BLOOD UREA NITROGEN 11 mg/dL (7-17); CARBON DIOXIDE 28 mmol/L (22-30); GFR AFRICAN-AMERICAN > 60; GLUCOSE,RANDOM 150 mg/dL (65-105); TOTAL PROTEIN 6.7 g/dL (6.3-8.3)
[2017-04-01 06:58] LABS: ALT/SGPT 46 U/L (9-52); CALCIUM 6.7 mg/dl (8.6-10.4); MAGNESIUM 1.5 mg/dL (1.6-2.3)
[2017-04-01 07:07] LABS: POTASSIUM 2.5 mmol/L (3.6-5.2)
[2017-04-01] MEDS ORDERED: Magnesium Sulfate 1 gm in D5W 1 GM/100 ML BAG IVPB ONE (07:29)
[2017-04-01 08:33] LABS: NEUTROPHIL 85 % (50-75); TOTAL CELLS COUNTED 100
[2017-04-01 08:34] LABS: GIANT PLATELETS PRESENT; LARGE PLATELETS PRESENT
--- NOTE | 2017-04-01 12:04 | CARD ---
APPROVED REPORT EKG Measurement Heart [id number] [id number] <Conclusion> Sinus rhythm with premature supraventricular complexes Nonspecific ST and T wave abnormality Abnormal ECG
--- NOTE | 2017-04-01 12:08 | CP.PCM.PN ---
Subjective - Date & Time of Evaluation Date of Evaluation: 04/01/17 Time of Evaluation: 11:00 - Subjective Subjective: Unable to provide ROS due to AMS Objective - Vital Signs/Intake and Output Vital Signs (last 24 hours): Temp Pulse Resp BP Pulse Ox 97.8 F 89 25 H 164/92 H 100 04/01/17 04:00 04/01/17 09:01 04/01/17 09:01 04/01/17 09:01 04/01/17 09:01 Intake and Output: 04/01/17 04/01/17 06:59 18:59 Intake Total 1450 500 Output Total 1055 840 Balance 395 -340 - Medications Medications: Current Medications Sodium Bicarbonate 150 ml/ (Dextrose) 1,050 mls @ 100 mls/hr IV .[id number] [facility] Last Admin: 04/01/17 11:20 Dose: 100 mls/hr Aztreonam 1 gm/ Sodium (Chloride) 100 mls @ 100 mls/hr IVPB Q8H [facility] Last Admin: 04/01/17 09:31 Dose: 100 mls/hr Vancomycin HCl 1,000 mg/ (Sodium Chloride) 250 mls @ 166.6 mls/hr IVPB Q24H [facility] Last Admin: 04/01/17 02:35 Dose: 166.6 mls/hr Pantoprazole Sodium (Protonix Inj) 40 mg IVP DAILY [facility] Last Admin: 04/01/17 09:29 Dose: 40 mg - Labs Labs: 04/01/17 06:24 04/01/17 06:27 PT 13.9 SECONDS (9.7-12.2) H 03/30/17 23:55 INR 1.2 03/30/17 23:55 APTT 49 SECONDS (21-34) H 03/30/17 23:55 - Constitutional Appears: Chronically Ill - Head Exam Head Exam: ATRAUMATIC, NORMAL INSPECTION, NORMOCEPHALIC - Eye Exam Pupil Exam: Fixed - ENT Exam ENT Exam: Mucous Membranes Dry - Neck Exam Neck Exam: Normal Inspection - Respiratory Exam Respiratory Exam: Decreased Breath Sounds Additional comments: On MV - Cardiovascular Exam Cardiovascular Exam: Tachycardia, REGULAR RHYTHM - GI/Abdominal Exam GI & Abdominal Exam: Soft, Diminished Bowel Sounds - Rectal Exam Rectal Exam: Deferred - Extremities Exam Extremities Exam: Normal Inspection, Pedal Edema - Back Exam Back Exam: NORMAL INSPECTION - Neurological Exam Neurological Exam: Motor Sensory Deficit Neuro motor strength exam: Left Upper Extremity: 0, Right Upper Extremity: 0, Left Lower Extremity: 0, Right Lower Extremity: 0 - Psychiatric Exam Psychiatric exam: Flat Affect - Skin Skin Exam: Pallor Assessment and Plan - Assessment and Plan (Free Text) Assessment: Patient remains unrsponsive to stimuli, with foxed pupils and minimal or absent gag reflex. Skin looks very pale despite Hb 10.8 today. Neuro consult was called , as neurological exam reveals no brain activities. These findings were discussed with patient's two sons at the bed side. I made them aware of poor prognosis based on the findings so far and that neuro consult was pending for EEG. Son Silvio said that they were ready to remove patient off life support if meaningful recovery was not expected. Silvio suggested that those were his mother's wishes. he signed DNR/DNI form. This was shared with Doctor Quinones and Suly MACE. 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
--- NOTE | 2017-04-01 12:23 | CARD ---
APPROVED REPORT EXAM: Two-dimensional and M-mode echocardiogram with Doppler and color Doppler. Other Information Quality : Technically LimitedTechnically LimitedTechnically LimitedRhythm : Atrial Fibrillation Technically limited study due to body habitus. INDICATION Atrial Fibrillation CARDIAC ARREST, CARDIO RESPIRATORY ARREST, SEVERE ANEMIA RISK FACTORS Hyperlipidemia 2D DIMENSIONS LVOT Diameter2.1 (1.8-2.4cm) M-Mode DIMENSIONS Left Atrium (MM)3.40 (2.5-4.0cm)Aortic Root2.92 (2.2-3.7cm) Aortic Cusp Exc.1.01 (1.5-2.0cm) Aortic Valve AoV Peak Plrvmplh251.5cm/sAoV VTI62.2cmAO Peak GR.15mmHg LVOT Peak Hvnbdmql114.7cm/sLVOT VTI29.52cmAO Mean GR.12mmHg FRANCISCO (VMAX)1.41wb4URR (VTI)1.62cm2 Mitral Valve MV E Axpznkkj819.4cm/sMV A Cuycwexw555.4cm/sE/A ratio1.1 TDI E/Lateral E'0.0E/Medial E'0.0 Tricuspid Valve TR Peak Nyzeicbp896vv/sTR Peak Gr.26ynUnWUAR20dzDe LEFT VENTRICLE The left ventricle is normal size. There is normal left ventricular wall thickness. The left ventricular function is normal. The left ventricular ejection fraction is within the normal range. There is normal LV segmental wall motion. Tissue Doppler imaging reveals moderate left ventricular diastolic dysfunction. No left ventricle thrombus noted on this study. RIGHT VENTRICLE The right ventricle is normal size. There is normal right ventricular wall thickness. ATRIA The left atrium size is normal. The right atrium size is normal. AORTIC VALVE The aortic valve is calcified and displays decreased opening. No aortic regurgitation is present. There is moderate valvular aortic stenosis. MITRAL VALVE Mitral annular calcification is moderate to severe. Mitral regurgitation is mild. TRICUSPID VALVE There is moderate pulmonary hypertension. GREAT VESSELS The aortic root displays moderate sclerocalcific changes of the aortic root. The ascending aorta is normal in size. PERICARDIAL EFFUSION There is no pericardial effusion. <Conclusion> Tissue Doppler imaging reveals moderate left ventricular diastolic dysfunction. There is moderate valvular aortic stenosis. Mitral annular calcification is moderate to severe. Mitral regurgitation is mild. SUBOPTIMAL STUDY. There is moderate pulmonary hypertension.
--- NOTE | 2017-04-01 13:01 | CP.CCUPN ---
<Jim Quinones - Last Filed: 04/01/17 13:36> CCU Subjective - Physician Review Subjective (Free Text): 04/01/17 13:36 Pt seen and examined at bedside. Pt is intubated, on AC mode. Neuro exam is same as yesterday: pt minimally responsive to deep stimuli, weak cough/gag reflex, no corneal reflex, left eye fixed and dilated, right eye constricted but responsive to light. GCS of 4. Palliative Care spoke with sons this AM. They signed DNR/DNI in accordance with mother's stated wishes. ROS unobtainable due to pts mental status/intubation. Critical Care Time Spent (in minutes): 40 CCU Objective - Vital Signs / Intake & Output Vital Signs (Last 4 hours): Vital Signs Pulse Resp BP Pulse Ox 04/01/17 12:00 90 26 H 161/71 H 98 04/01/17 11:00 91 H 29 H 165/74 H 98 04/01/17 10:01 94 H 31 H 164/74 H 99 04/01/17 10:00 88 29 H 98 04/01/17 09:01 89 25 H 164/92 H 100 04/01/17 09:00 98 H 32 H 99 Intake and Output (Last 8hrs): Intake & Output 03/31/17 04/01/17 04/01/17 22:59 06:59 14:59 Intake Total 875 1150 500 Output Total 2185 770 840 Balance -1310 380 -340 Weight 146 lb 6.191 oz Intake: Intake, IV Amount 875 1150 500 Right Antecubital 800 800 300 Right Forearm 75 350 200 Output: Urine 2185 770 540 Urethral (Morgan) 2185 770 540 Other 300 Other: # Bowel Movements 1 1 - Physical Exam Physical Exam Limitations: Positive for: Altered Mental Status Head: Positive for: Atraumatic Pupils: Positive for: Non-Reactive (Left fixed, unreactive), Other (right eye: constricted but reactive to light) Extroacular Muscles: Positive for: Other (fixed) Conjunctiva: Positive for: Normal Mouth: Positive for: Dry Neck: Positive for: Normal Range of Motion Respiratory/Chest: Positive for: Respiratory Distress (on MV), Other (on mv support) Cardiovascular: Positive for: Regular Rate and Rhythm, Normal S1, S2 Abdomen: Negative for: Normal Bowel Sounds (hypoactive) Neurological: Positive for: Other (post-hypoxic myoclonus; 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; weak cough/gag, arouse to deep stimuli, ) Psychiatric: Negative for: Alert, Oriented x 3, Normal Insight, Normal Concentration - Medications Active Medications: Active Medications Generic Name Dose Route Start Last Admin Trade Name Freq PRN Reason Stop Dose Admin Sodium Bicarbonate 150 ml/ 1,050 mls @ 100 mls/hr 03/31/17 02:30 04/01/17 11: 20 Dextrose IV 100 mls/hr .[id number] DELROY Administration Aztreonam 1 gm/ Sodium 100 mls @ 100 mls/hr 03/31/17 02:30 04/01/17 09:31 Chloride IVPB 100 mls/hr Q8H DELROY Administration Vancomycin HCl 1,000 mg/ 250 mls @ 166.6 mls/hr 03/31/17 02:30 04/01/17 02:35 Sodium Chloride IVPB 166.6 mls/hr Q24H DELROY Administration Pantoprazole Sodium 40 mg 03/31/17 10:00 04/01/17 09:29 Protonix Inj IVP 40 mg DAILY DELROY Administration - Patient Studies Lab Studies: Microbiology Studies 03/31/17 03:10 Blood Culture - Preliminary Blood-Venous NO GROWTH AFTER 24 HOURS 03/31/17 02:40 Blood Culture - Preliminary Blood-Venous NO GROWTH AFTER 24 HOURS Lab Studies 04/01/17 04/01/17 04/01/17 Range/Units 06:27 06:24 04:15 WBC 28.6 H (4.8-10.8) K/uL RBC 4.60 (3.80-5.20) Mil/uL Hgb 10.8 L (11.0-16.0) g/dL Hct 34.1 (34.0-47.0) % MCV 74.2 L D (81.0-99.0) fL MCH 23.5 L (27.0-31.0) pg MCHC 31.7 L (33.0-37.0) g/dL RDW 23.8 H (11.5-14.5) % Plt Count 294 (130-400) K/uL MPV 8.3 (7.2-11.7) fL Neut % (Auto) 89.6 H (50.0-75.0) % Lymph % (Auto) 5.0 L (20.0-40.0) % [place] % (Auto) 5.2 (0.0-10.0) % Eos % (Auto) 0.0 (0.0-4.0) % Baso % (Auto) 0.2 (0.0-2.0) % Neut # 25.6 H (1.8-7.0) K/uL Lymph # 1.4 (1.0-4.3) K/uL [place] # 1.5 H (0.0-0.8) K/uL Eos # 0.0 (0.0-0.7) K/uL Baso # 0.1 (0.0-0.2) K/uL Neutrophils % (Manual) 85 H (50-75) % Band Neutrophils % 6 H (0-2) % Lymphocytes % (Manual) 7 L (20-40) % Monocytes % (Manual) 2 (0-10) % Platelet Estimate Normal (NORMAL) Large Platelets Present Giant Platelets Present Hypochromasia (manual) Slight Poikilocytosis (manual Slight Anisocytosis (manual) Slight Microcytosis (manual) Slight Macrocytosis (manual) Slight Target Cells Slight Tear Drop Cells Slight Ovalocytes Slight Mao Cells Slight Puncture Site Rb pCO2 31 L (35-45) mm/Hg pO2 104 H (80-100) mm/Hg HCO3 29.8 H (21-28) mmol/L ABG pH 7.57 H (7.35-7.45) ABG Total CO2 29.4 H (22-28) mmol/L ABG O2 Saturation 97.5 (95-98) % ABG Base Excess 6.3 H (-2.0-3.0) mmol/L ABG Hemoglobin 10.0 L (11.7-17.4) g/dL ABG Carboxyhemoglobin 0.8 (0.5-1.5) % POC ABG HHb (Measured) 2.4 (0.0-5.0) % ABG Methemoglobin 1.2 (0.0-3.0) % Hernandez Test Na A-a O2 Difference 71.0 mm/Hg Respiratory Index 0.7 Hgb O2 Saturation 95.5 (95.0-98.0) % Mechanical Rate 14 FiO2 30.0 % Tidal Volume 450 PEEP 5 Sodium 136 (132-148) mmol/L Potassium 2.5 L* D (3.6-5.2) mmol/L Chloride 97 L (98-107) mmol/L Carbon Dioxide 28 (22-30) mmol/L Anion Gap 14 (10-20) BUN 11 (7-17) mg/dL Creatinine 0.6 L (0.7-1.2) MG/DL Est GFR ( Amer) > 60 Est GFR (Non-Af Amer) > 60 Random Glucose 150 H (65-105) mg/dL Calcium 6.7 L (8.6-10.4) mg/dl Phosphorus 2.0 L (2.5-4.5) mg/dL Magnesium 1.5 L (1.6-2.3) mg/dL Total Bilirubin 1.5 H (0.2-1.3) mg/dL AST 169 H D (14-36) U/L ALT 46 (9-52) U/L Alkaline Phosphatase 89 (38-126) U/L Total Protein 6.7 (6.3-8.3) g/dL Albumin 3.1 L (3.5-5.0) g/dL Globulin 3.6 (2.2-3.9) gm/dL Albumin/Globulin Ratio 0.9 L (1.0-2.1) Laboratory Results - last 24 hr 04/01/17 04/01/17 04/01/17 04:15 06:24 06:27 WBC 28.6 H RBC 4.60 Hgb 10.8 L Hct 34.1 MCV 74.2 L D MCH 23.5 L MCHC 31.7 L RDW 23.8 H Plt Count 294 MPV 8.3 Neut % (Auto) 89.6 H Lymph % (Auto) 5.0 L [place] % (Auto) 5.2 Eos % (Auto) 0.0 Baso % (Auto) 0.2 Neut # 25.6 H Lymph # 1.4 [place] # 1.5 H Eos # 0.0 Baso # 0.1 Neutrophils % (Manual) 85 H Band Neutrophils % 6 H Lymphocytes % (Manual) 7 L Monocytes % (Manual) 2 Platelet Estimate Normal Large Platelets Present Giant Platelets Present Hypochromasia (manual) Slight Poikilocytosis (manual Slight Anisocytosis (manual) Slight Microcytosis (manual) Slight Macrocytosis (manual) Slight Target Cells Slight Tear Drop Cells Slight Ovalocytes Slight Harold Cells Slight Puncture Site Rb pCO2 31 L pO2 104 H HCO3 29.8 H ABG pH 7.57 H ABG Total CO2 29.4 H ABG O2 Saturation 97.5 ABG Base Excess 6.3 H ABG Hemoglobin 10.0 L ABG Carboxyhemoglobin 0.8 POC ABG HHb (Measured) 2.4 ABG Methemoglobin 1.2 Hernandez Test Na A-a O2 Difference 71.0 Respiratory Index 0.7 Hgb O2 Saturation 95.5 Mechanical Rate 14 FiO2 30.0 Tidal Volume 450 PEEP 5 Sodium 136 Potassium 2.5 L* D Chloride 97 L Carbon Dioxide 28 Anion Gap 14 BUN 11 Creatinine 0.6 L Est GFR ( Amer) > 60 Est GFR (Non-Af Amer) > 60 Random Glucose 150 H Calcium 6.7 L Phosphorus 2.0 L Magnesium 1.5 L Total Bilirubin 1.5 H AST 169 H D ALT 46 Alkaline Phosphatase 89 Total Protein 6.7 Albumin 3.1 L Globulin 3.6 Albumin/Globulin Ratio 0.9 L Fingerstick Blood Sugar Results: 286 Review of Systems - Review of Systems Systems not reviewed;Unavailable: Intubated Assessment/Plan - Assessment and Plan (Free Text) Assessment: 82yo Female with PMHx of multiple TIAs, HTN, Hypercholesterolemia, Blepharospasm - brought in via EMS. Cardiorepsiratory arrest. Intubated in field. Has remained unresponsive, on MV. Plan: Pt status: DNR/DNI, admitted to ICU Neuro: Pt intubated Anoxic brain injury - pt found unresponsive for unknown length of time Pt responsive to deep stimulation, weak gag/cough, no corneal reflex, left pupil dilated, right pupil reactive to light, extremities flaccid Neuro consult: Dr. Roger Garay, help appreciated f/u reccs f/u EEG CV: Hx of HTN, HLD Hold home meds: Plavix, Simvastatin, Metoprolol, Norvasc ECHO (03/31/17): Moderate LV diastolic dysfxn. Mitral annular calcification. Moderate valvular aortic stenosis. Mild Mitral regurgitation. moderate pulm HTN. (see full report) Pulm: Intubated, on MV Vent settings: FiO2:30, PEEP 5, RR 14, TV: 450 CXR (03/30/17): Patchy ill-defined consolidative changes at the left lung base as well as right suprahilar region. Biapical pleural thickening with upper lobe granulomatous changes. (see full report) f/u CXR (03/31/17): Biapical pleural thickening with upper lobe granulomatous changes. Ill defined nodularity projecting over right apex. Bilateral hilar prominence, left greater than right. Tortuous ectatic aorta. Venous congestion. Bibasilar airspace opacities with trace b/l pleural effusions (see full report). Endo: Hgb A1C 5.5 /Renal: BUN/Cr WNL Good urine output Hem: Hgb: 5.2 on admission (03/30/17), transfused 3 units - Hgb 10.8 this AM ID: Leukocytosis 28.6 Lactate 4.4 on presentation, 2.2 after fluid/blood rescusitation - Lactate reflection of cardiac arrest/dehydration, not sign of sepsis Blood cx (03/31/17): no growth for 24 hrs x 2 f/u urine cx Integumentary Wound care nurse for sacral wound - f/u reccs Prophylaxis: Protonix 40mg IV daily SCDs <Garry So S - Last Filed: 04/01/17 18:37> CCU Subjective - Physician Review Critical Care Time Spent (in minutes): 30 CCU Objective - Vital Signs / Intake & Output Vital Signs (Last 4 hours): Vital Signs Temp Pulse Resp BP Pulse Ox 04/01/17 18:00 97 H 26 H 167/69 H 98 04/01/17 17:01 94 H 24 165/73 H 99 04/01/17 17:00 94 H 22 04/01/17 16:01 102 H 22 98 04/01/17 16:00 99.8 F H 170/76 H 04/01/17 15:59 99 H 22 98 04/01/17 15:00 99 H 24 173/75 H 98 Intake and Output (Last 8hrs): Intake & Output 04/01/17 04/01/17 04/01/17 06:59 14:59 22:59 Intake Total 1150 1200 400 Output Total 770 1340 365 Balance 380 -140 35 Weight 146 lb 6.191 oz Intake: Intake, IV Amount 1150 1200 400 R forearm 100 Right Antecubital 800 800 400 Right Forearm 350 300 Output: Drainage 50 ogt TO lis 50 Urine 770 1040 315 Urethral (Morgan) 770 1040 315 Other 300 Other: # Bowel Movements 1 - Medications Active Medications: Active Medications Generic Name Dose Route Start Last Admin Trade Name Eliu PRN Reason Stop Dose Admin Aztreonam 1 gm/ Sodium 100 mls @ 100 mls/hr 03/31/17 02:30 04/01/17 17:29 Chloride IVPB 100 mls/hr Q8H DELROY Administration Vancomycin HCl 1,000 mg/ 250 mls @ 166.6 mls/hr 03/31/17 02:30 04/01/17 02:35 Sodium Chloride IVPB 166.6 mls/hr Q24H DELROY Administration Dextrose/Sodium Chloride 1,000 mls @ 100 mls/hr 04/01/17 14:30 04/01/17 14:29 Dextrose 5%/0.9% Ns 1000 Ml IV 100 mls/hr .Q10H DELROY Administration Metoprolol Tartrate 5 mg 04/01/17 18:00 04/01/17 18:07 Lopressor IVP Not Given Q6H DELROY Pantoprazole Sodium 40 mg 03/31/17 10:00 04/01/17 09:29 Protonix Inj IVP 40 mg DAILY DELROY Administration - Patient Studies Lab Studies: Microbiology Studies 03/31/17 08:00 Urine Culture - Preliminary Urine,Catheterized Gram Negative Viraj 03/31/17 03:10 Blood Culture - Preliminary Blood-Venous NO GROWTH AFTER 24 HOURS 03/31/17 02:40 Blood Culture - Preliminary Blood-Venous NO GROWTH AFTER 24 HOURS Lab Studies 04/01/17 04/01/17 04/01/17 Range/Units 06:27 06:24 04:15 WBC 28.6 H (4.8-10.8) K/uL RBC 4.60 (3.80-5.20) Mil/uL Hgb 10.8 L (11.0-16.0) g/dL Hct 34.1 (34.0-47.0) % MCV 74.2 L D (81.0-99.0) fL MCH 23.5 L (27.0-31.0) pg MCHC 31.7 L (33.0-37.0) g/dL RDW 23.8 H (11.5-14.5) % Plt Count 294 (130-400) K/uL MPV 8.3 (7.2-11.7) fL Neut % (Auto) 89.6 H (50.0-75.0) % Lymph % (Auto) 5.0 L (20.0-40.0) % [place] % (Auto) 5.2 (0.0-10.0) % Eos % (Auto) 0.0 (0.0-4.0) % Baso % (Auto) 0.2 (0.0-2.0) % Neut # 25.6 H (1.8-7.0) K/uL Lymph # 1.4 (1.0-4.3) K/uL [place] # 1.5 H (0.0-0.8) K/uL Eos # 0.0 (0.0-0.7) K/uL Baso # 0.1 (0.0-0.2) K/uL Neutrophils % (Manual) 85 H (50-75) % Band Neutrophils % 6 H (0-2) % Lymphocytes % (Manual) 7 L (20-40) % Monocytes % (Manual) 2 (0-10) % Platelet Estimate Normal (NORMAL) Large Platelets Present Giant Platelets Present Hypochromasia (manual) Slight Poikilocytosis (manual Slight Anisocytosis (manual) Slight Microcytosis (manual) Slight Macrocytosis (manual) Slight Target Cells Slight Tear Drop Cells Slight Ovalocytes Slight Harold Cells Slight Puncture Site Rb pCO2 31 L (35-45) mm/Hg pO2 104 H (80-100) mm/Hg HCO3 29.8 H (21-28) mmol/L ABG pH 7.57 H (7.35-7.45) ABG Total CO2 29.4 H (22-28) mmol/L ABG O2 Saturation 97.5 (95-98) % ABG Base Excess 6.3 H (-2.0-3.0) mmol/L ABG Hemoglobin 10.0 L (11.7-17.4) g/dL ABG Carboxyhemoglobin 0.8 (0.5-1.5) % POC ABG HHb (Measured) 2.4 (0.0-5.0) % ABG Methemoglobin 1.2 (0.0-3.0) % Hernandez Test Na A-a O2 Difference 71.0 mm/Hg Respiratory Index 0.7 Hgb O2 Saturation 95.5 (95.0-98.0) % Mechanical Rate 14 FiO2 30.0 % Tidal Volume 450 PEEP 5 Sodium 136 (132-148) mmol/L Potassium 2.5 L* D (3.6-5.2) mmol/L Chloride 97 L (98-107) mmol/L Carbon Dioxide 28 (22-30) mmol/L Anion Gap 14 (10-20) BUN 11 (7-17) mg/dL Creatinine 0.6 L (0.7-1.2) MG/DL Est GFR ( Amer) > 60 Est GFR (Non-Af Amer) > 60 Random Glucose 150 H (65-105) mg/dL Calcium 6.7 L (8.6-10.4) mg/dl Phosphorus 2.0 L (2.5-4.5) mg/dL Magnesium 1.5 L (1.6-2.3) mg/dL Total Bilirubin 1.5 H (0.2-1.3) mg/dL AST 169 H D (14-36) U/L ALT 46 (9-52) U/L Alkaline Phosphatase 89 (38-126) U/L Total Protein 6.7 (6.3-8.3) g/dL Albumin 3.1 L (3.5-5.0) g/dL Globulin 3.6 (2.2-3.9) gm/dL Albumin/Globulin Ratio 0.9 L (1.0-2.1) Laboratory Results - last 24 hr 04/01/17 04/01/17 04/01/17 04:15 06:24 06:27 WBC 28.6 H RBC 4.60 Hgb 10.8 L Hct 34.1 MCV 74.2 L D MCH 23.5 L MCHC 31.7 L RDW 23.8 H Plt Count 294 MPV 8.3 Neut % (Auto) 89.6 H Lymph % (Auto) 5.0 L [place] % (Auto) 5.2 Eos % (Auto) 0.0 Baso % (Auto) 0.2 Neut # 25.6 H Lymph # 1.4 [place] # 1.5 H Eos # 0.0 Baso # 0.1 Neutrophils % (Manual) 85 H Band Neutrophils % 6 H Lymphocytes % (Manual) 7 L Monocytes % (Manual) 2 Platelet Estimate Normal Large Platelets Present Giant Platelets Present Hypochromasia (manual) Slight Poikilocytosis (manual Slight Anisocytosis (manual) Slight Microcytosis (manual) Slight Macrocytosis (manual) Slight Target Cells Slight Tear Drop Cells Slight Ovalocytes Slight Harold Cells Slight Puncture Site Rb pCO2 31 L pO2 104 H HCO3 29.8 H ABG pH 7.57 H ABG Total CO2 29.4 H ABG O2 Saturation 97.5 ABG Base Excess 6.3 H ABG Hemoglobin 10.0 L ABG Carboxyhemoglobin 0.8 POC ABG HHb (Measured) 2.4 ABG Methemoglobin 1.2 Hernandez Test Na A-a O2 Difference 71.0 Respiratory Index 0.7 Hgb O2 Saturation 95.5 Mechanical Rate 14 FiO2 30.0 Tidal Volume 450 PEEP 5 Sodium 136 Potassium 2.5 L* D Chloride 97 L Carbon Dioxide 28 Anion Gap 14 BUN 11 Creatinine 0.6 L Est GFR ( Amer) > 60 Est GFR (Non-Af Amer) > 60 Random Glucose 150 H Calcium 6.7 L Phosphorus 2.0 L Magnesium 1.5 L Total Bilirubin 1.5 H AST 169 H D ALT 46 Alkaline Phosphatase 89 Total Protein 6.7 Albumin 3.1 L Globulin 3.6 Albumin/Globulin Ratio 0.9 L Attending/Attestation - Attestation I have personally seen and examined this patient.: Yes I have fully participated in the care of the patient.: Yes I have reviewed all pertinent clinical information: Yes Notes (Text): 04/01/17 18:36 Patient seen and examined in the intensive care unit. Case discussed with house staff in the morning rounds. Cardiorepsiratory arrest. Intubated in field, no response to painful stimuli Seen by neurology DNR/DNI and awaiting family decision for terminal extubation
[2017-04-01] MEDS: Dextrose 5%/0.9% NS 1,000 ML IV SCH (14:29)
--- NOTE | 2017-04-01 15:50 | CON ---
DATE: 04/01/2017 REASON FOR CONSULTATION: Unresponsiveness. HISTORY OF PRESENTING ILLNESS: The patient is an 82-year-old female who was admitted after she was f ound unresponsive at home. The patient was noted to be lying down face flat on couch. Not breathing . EMS was called and CPR was given. The patient was given 2 doses of epinephrine. The patient is c urrently intubated and on a ventilator and comatose. She is unable to give a history. History is ma inly from the chart. REVIEW OF SYSTEMS: Unable to obtain because of patient's current status. PAST MEDICAL HISTORY: Includes hypertension, hypercholesterolemia, TIA. MEDICATIONS AT HOME: Included Plavix, simvastatin, metoprolol, amlodipine. ALLERGIES: PENICILLIN. SOCIAL HISTORY: The patient is a nonsmoker and nonalcoholic, does not use any illicit drugs. FAMILY HISTORY: Noncontributory to the case. PHYSICAL EXAMINATION: GENERAL: The patient is an elderly female lying on the bed on a ventilator. VITAL SIGNS: Her blood pressure is 160/76, heart rate is 93 per minute, breathing at a rate of 24 pe r minute, ventilator is set at 14 per minute, temperature is 98.9 degrees Fahrenheit. HEENT: Head is normocephalic, atraumatic. NECK: Supple. There are no carotid bruits. LUNGS: Clear. CARDIOVASCULAR: S1, S2 audible. No murmurs. ABDOMEN: Soft and nontender. Bowel sounds minimally present. NEUROLOGIC EXAMINATION: MENTAL STATUS: The patient is comatose, not responsive to verbal or noxious painful stimuli. CRANIAL NERVE: Pupil left is 4 mm, right is 3 mm, both nonreactive to light. Minimal doll's eye mov ement. Positive corneal reflex bilaterally. Positive gag reflex. There is no withdrawal of extremi ties to noxious painful stimuli. REFLEXES: Absent. Plantars no response. GAIT: Untestable. LABORATORY DATA: Labs reviewed, shows WBC of 28.6, hemoglobin 10.8, hematocrit of 34.1 and platelets of 294. Her INR is 1.2. Sodium is 136, potassium was 2.5, chloride 97, carbon dioxide content 28, BUN of 11, creatinine of 0.6, and glucose of 150. She had a CT scan of the head done which showed no acute intracranial abnormality. Scattered focal lucencies in the subcortical and periventricular wh ite matter suggestive of possible severe chronic microvascular ischemic changes. IMPRESSION: 1. Hypoxic encephalopathy status post cardiac arrest. 2. Respiratory failure. RECOMMENDATIONS: 1. The patient to have an electroencephalogram. 2. There is no improvement in patient's neurologic status; hence, the patient was admitted to the [facility]. 3. The patient to be continued on antibiotics with her elevated WBC count. 4. I will continue supportive care. 5. The patient's prognosis appears to be poor. This was discussed with the ICU staff 6. Please continue other treatment. Thank you for the opportunity to participate in the care of this patient. Deric Garay MD cc: [id number] TT: 04/01/2017 15:49:09 Confirmation # [id number] Dictation # [id number]
[2017-04-01] MEDS: Metoprolol 1 mg/ml Inj IVP SCH (18:07)
--- NOTE | 2017-04-01 18:21 | CP.PCM.PN ---
Subjective - Date & Time of Evaluation Date of Evaluation: 04/01/17 Time of Evaluation: 17:45 - Subjective Subjective: Hospitalist Progress Note (Patient was seen and examined 5:45 PM 04/01/17 ICU 14A) 82 year old female who was admitted on the head esthetician hours on 03/31/17 s/p cardiopulmonary arrest. Patient was made DNR/DNI by family as per patient's wishes and patient is for terminal extubation once son arrives from [place]. ROS: this was not possible secondary to patient being intubated. Exam: HEENT: NCA, Right Pupil is round and reactive to light, Left pupil is oval in shape and is fixed, NO lymphadenopathy, Oral mucosa and nasal turbinates are dry , NO thyromegaly Cardio: NS1 and NS2, NO M/R/G Respiratory: Course breath sounds throughout the auscultatory field GI: BSx4 are reduced, Soft, NO HSM Ext: NO edema, Pulses are strong and equal, Capillary refill is 2 seconds Neuro: exam not possible Assessment and Plan: 1). Cardiopulmonary Arrest CT Head did not show any acute bleed 2D Echo shows moderate ventricular diastolic dysfunction, moderate aortic stenosis, annular calcification, moderate pulmonary htn CXR shows ill defined nodularity at the right lung apex, venous congestion, trace pleural effusion EEG report pending Neurology: Dr. Lucia Garay help is appreciated Palliative Care Obradovic help is appreciated 2). Anemia Secondary to ? S/P 3 Units PRBC and HgB/Hct stable 3). Metabolic Acidosis Treated with Bicarb drip which was D/C'd Currently Alkalotic F/U ABG 4). Hypokalemia Likely secondary to the Bicarb Drip 30 KCl IV given to day with 1 gm Mag 5). Leukocytosis F/U Blood Culture F/U Urine Culture Aztreonam 1 gm IV Q8H Vancomycin 1 gm IV Q24 F/U Vancomycin Trough 2 AM 04/03/17 6). Diarrhea F/U Stool Culture F/U O&P x 3 starting 04/01/17 F/U C. diff toxin 7). Elevated Blood Pressure Metoprolol 5 mg IV Q6H PRN SBP >180 8). Sacral Wound F/U Wound Care recommendations 9). Prophylactic Measure Protonix 40 mg IV 1x/day B/L SCDs: NO anticoagulation Jayce Lehman D.O. Objective - Vital Signs/Intake and Output Vital Signs (last 24 hours): Temp Pulse Resp BP Pulse Ox 99.8 F H 97 H 26 H 167/69 H 98 04/01/17 16:00 04/01/17 18:00 04/01/17 18:00 04/01/17 18:00 04/01/17 18:00 Intake and Output: 04/01/17 04/01/17 06:59 18:59 Intake Total 1450 1600 Output Total 1055 1705 Balance 395 -105 - Medications Medications: Current Medications Aztreonam 1 gm/ Sodium (Chloride) 100 mls @ 100 mls/hr IVPB Q8H DELROY Last Admin: 04/01/17 17:29 Dose: 100 mls/hr Vancomycin HCl 1,000 mg/ (Sodium Chloride) 250 mls @ 166.6 mls/hr IVPB Q24H DELROY Last Admin: 04/01/17 02:35 Dose: 166.6 mls/hr Dextrose/Sodium Chloride (Dextrose 5%/0.9% Ns 1000 Ml) 1,000 mls @ 100 mls/hr IV .Q10H DELROY Last Admin: 04/01/17 14:29 Dose: 100 mls/hr Metoprolol Tartrate (Lopressor) 5 mg IVP Q6H DELROY Last Admin: 04/01/17 18:07 Dose: Not Given Pantoprazole Sodium (Protonix Inj) 40 mg IVP DAILY DELROY Last Admin: 04/01/17 09:29 Dose: 40 mg - Labs Labs: 04/01/17 06:24 04/01/17 06:27 PT 13.9 SECONDS (9.7-12.2) H 03/30/17 23:55 INR 1.2 03/30/17 23:55 APTT 49 SECONDS (21-34) H 03/30/17 23:55
[2017-04-02] MEDS: Metoprolol 1 mg/ml Inj IVP SCH ×4 (00:08→17:56)
[2017-04-02] MEDS: Dextrose 5%/0.9% NS 1,000 ML IV SCH ×3 (01:44→21:45)
[2017-04-02] MEDS: Aztreonam 1 GM in Sodium Chloride 0.9% 100 ML IVPB SCH ×3 (01:45→17:54)
[2017-04-02 06:33] LABS: BASO % 0.1 % (0.0-2.0); HEMATOCRIT 32.1 % (34.0-47.0); LYMPH # 0.8 K/uL (1.0-4.3); LYMPH % 3.8 % (20.0-40.0); MEAN CELL VOLUME 73.3 fL (81.0-99.0); MEAN CORPUSCULAR HEMOGLOBIN 23.7 pg (27.0-31.0); MEAN CORPUSCULAR HGB CONC 32.3 g/dL (33.0-37.0); MEAN PLATELET VOLUME 8.3 fL (7.2-11.7); MONO # 1.1 K/uL (0.0-0.8); PLATELET COUNT 264 K/uL (130-400); RED CELL DISTRIBUTION WIDTH 24.7 % (11.5-14.5)
[2017-04-02 06:48] LABS: CHLORIDE 96 mmol/L (98-107)
[2017-04-02 06:49] LABS: SODIUM 131 mmol/L (132-148)
[2017-04-02 06:51] LABS: ALB/GLOB RATIO 0.9 (1.0-2.1); ALKALINE PHOSPHATASE 84 U/L (38-126); ALT/SGPT 38 U/L (9-52); AST/SGOT 113 U/L (14-36); BILIRUBIN,TOTAL 1.7 mg/dL (0.2-1.3); BLOOD UREA NITROGEN 9 mg/dL (7-17); CARBON DIOXIDE 27 mmol/L (22-30); GFR AFRICAN-AMERICAN > 60; GLUCOSE,RANDOM 140 mg/dL (65-105); TOTAL PROTEIN 5.8 g/dL (6.3-8.3)
[2017-04-02 06:52] LABS: CALCIUM 6.6 mg/dl (8.6-10.4); MAGNESIUM 1.7 mg/dL (1.6-2.3)
[2017-04-02 06:53] LABS: POTASSIUM 2.3 mmol/L (3.6-5.2)
--- NOTE | 2017-04-02 08:43 | PN ---
DATE: 04/02/2017 NEUROLOGY PROGRESS NOTE The patient is lying on the bed, in no acute distress, on a ventilator. PHYSICAL EXAMINATION: VITAL SIGNS: Blood pressure is 136/79. Heart rate is 88 per minute, breathing at a rate of 14 per m inute. The ventilator is set at 14 per minute. She is afebrile. HEENT: Head is normocephalic, atraumatic. NECK: Supple. There are no carotid bruits. LUNGS: Clear. CARDIOVASCULAR: S1, S2 audible. No murmurs. ABDOMEN: Soft, nontender. Bowel sounds are absent. NEUROLOGIC EXAMINATION: MENTAL STATUS: The patient is comatose, does not respond to verbal or noxious painful stimuli. CRANIAL NERVES: Pupils are 6 mm bilaterally, nonreactive to light. Absent doll's eyes, absent corne al reflex. No gag reflex. Minimal withdrawal of upper extremities to noxious painful stimuli. Plan tars no response. LABORATORY DATA: Labs reviewed show WBC 22.0, hemoglobin 10.4, hematocrit 32.1, platelets of 264. S odium is 13____, potassium 2.3, chloride of 96, carbon dioxide 27, BUN of 9, creatinine 0.5, glucose of 140. IMPRESSION: 1. Anoxic encephalopathy status post cardiac arrest. 2. Respiratory failure. RECOMMENDATIONS: 1. The patient has deteriorated since yesterday with loss of her brainstem reflexes. She only has m inimal withdrawal of upper extremities to noxious painful stimuli. 2. The patient's DNR/DNI status is noted. 3. The patient has a poor prognosis. 4. The patient's family apparently has decided to terminally extubate the patient today. Thank you for the opportunity to participate in the care of this patient. Deric Garay MD cc: [id number] TT: 04/02/2017 08:42:40 Confirmation # [id number] Dictation # [id number]
[2017-04-02 08:55] LABS: NEUTROPHIL 93 % (50-75); TOTAL CELLS COUNTED 100
[2017-04-02 08:57] LABS: LARGE PLATELETS PRESENT
--- NOTE | 2017-04-02 09:05 | RAD ---
HISTORY: intubated COMPARISON: 03/31/2017 FINDINGS: LUNGS: Lines and tubes stable position. Bilateral paratracheal airspace opacities may represent prominent vasculature. Clinical correlation. Mild venous congestion. Bilateral hilar prominence. Minimal blunting of the bilateral costophrenic angles. PLEURA: As above. CARDIOVASCULAR: Normal. OSSEOUS STRUCTURES: No significant abnormalities. VISUALIZED UPPER ABDOMEN: Normal. OTHER FINDINGS: None. IMPRESSION: Lines and tubes stable position. Bilateral paratracheal airspace opacities may represent prominent vasculature. Clinical correlation. Mild venous congestion. Bilateral hilar prominence. Minimal blunting of the bilateral costophrenic angles.
--- NOTE | 2017-04-02 11:14 | EEG ---
DATE: 03/31/2017 INTRODUCTION: This is a digitally recorded EEG monitoring using standard EEG montages. BACKGROUND RHYTHM: The EEG shows a background activity of 2 Hz delta activity. This EEG activity is present diffusely. Small amount of movement artifact noticed in this EEG recording. No EEG reactiv ity was seen. ABNORMAL POTENTIALS: No spikes, sharp waves or focal slowing was seen. PHOTIC STIMULATION AND HYPERVENTILATION: Photic stimulation did not reveal any abnormality. Hyperve ntilation was not performed. IMPRESSION: Abnormal electroencephalogram. The above findings are consistent with severe bihemisphe ancelmo cerebral dysfunction. No epileptiform activity seen in this electroencephalogram recording. Deric Garay MD cc: [id number] TT: 04/01/2017 19:20:38 Confirmation # [id number] Dictation # [id number]
--- NOTE | 2017-04-02 12:13 | CP.CCUPN ---
<Jim Quinones - Last Filed: 04/02/17 13:49> CCU Subjective - Physician Review Subjective (Free Text): 04/02/17 13:24 Pt seen and examined at bedside. Pt remains intubated, on AC mode. Neuro exam deteriorated since yesterday: pt minimally responsive to deep stimuli, absent gag reflex, no corneal reflex, left eye fixed and dilated, as is right eye today. GCS of 3. ROS unobtainable due to pts mental status/intubation. Pt family aware of minimal prospects of recovery. Will hold off terminal extubation until at least 72 hour window has elapsed. ROS unavailable due to pt condition. Critical Care Time Spent (in minutes): 40 CCU Objective - Vital Signs / Intake & Output Vital Signs (Last 4 hours): Vital Signs Pulse Resp BP Pulse Ox 04/02/17 11:01 149/70 04/02/17 11:00 71 15 100 04/02/17 10:01 143/67 04/02/17 10:00 84 16 100 04/02/17 09:01 71 14 142/70 100 04/02/17 09:00 72 14 99 Intake and Output (Last 8hrs): Intake & Output 04/01/17 04/02/17 04/02/17 22:59 06:59 14:59 Intake Total 800 850 400 Output Total 890 1685 600 Balance -90 -835 -200 Weight 150 lb Intake: Intake, IV Amount 800 850 400 R forearm 100 Right Antecubital 800 850 100 Right Forearm 200 Output: Drainage 50 ogt TO lis 50 Urine 840 1685 600 Urethral (Morgan) 840 1685 600 - Physical Exam Head: Positive for: Atraumatic Pupils: Positive for: Non-Reactive (Left fixed, unreactive), Other Extroacular Muscles: Positive for: Other (fixed) Conjunctiva: Positive for: Normal Mouth: Positive for: Dry Neck: Positive for: Normal Range of Motion Respiratory/Chest: Positive for: Other (on mv support) Cardiovascular: Positive for: Regular Rate and Rhythm, Normal S1, S2 Abdomen: Negative for: Normal Bowel Sounds (hypoactive) Neurological: Positive for: Other (post-hypoxic myoclonus; 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; weak cough/gag, arouse to deep stimuli, ) Psychiatric: Negative for: Alert, Oriented x 3, Normal Insight, Normal Concentration - Medications Active Medications: Active Medications Generic Name Dose Route Start Last Admin Trade Name Freq PRN Reason Stop Dose Admin Aztreonam 1 gm/ Sodium 100 mls @ 100 mls/hr 03/31/17 02:30 04/02/17 09:44 Chloride IVPB 100 mls/hr Q8H [facility] Administration Vancomycin HCl 1,000 mg/ 250 mls @ 166.6 mls/hr 03/31/17 02:30 04/02/17 01:48 Sodium Chloride IVPB 166.6 mls/hr Q24H [facility] Administration Dextrose/Sodium Chloride 1,000 mls @ 100 mls/hr 04/01/17 14:30 04/02/17 10:51 Dextrose 5%/0.9% Ns 1000 Ml IV Not Given .Q10H [facility] Potassium Chloride 20 meq in 100 mls @ 50 mls/hr 04/02/17 08:00 04/02/17 10: 04 Potassium Chloride 20 Meq/100 Ml IVPB 04/02/17 13:59 50 mls/hr Q2 [facility] Administration Metoprolol Tartrate 5 mg 04/01/17 18:00 04/02/17 06:05 Lopressor IVP Not Given Q6H [facility] Pantoprazole Sodium 40 mg 03/31/17 10:00 04/02/17 09:25 Protonix Inj IVP 40 mg DAILY [facility]Y Administration - Patient Studies Lab Studies: Microbiology Studies 03/31/17 03:10 Blood Culture - Preliminary Blood-Venous NO GROWTH AFTER 48 HOURS 03/31/17 02:40 Blood Culture - Preliminary Blood-Venous NO GROWTH AFTER 48 HOURS 03/31/17 08:00 Urine Culture - Final Urine,Catheterized Escherichia Coli 03/31/17 08:00 MRSA Culture (Admit) - Final Nose MRSA NOT DETECTED Lab Studies 04/02/17 04/02/17 Range/Units 06:24 06:24 WBC 22.0 H (4.8-10.8) K/uL RBC 4.38 (3.80-5.20) Mil/uL Hgb 10.4 L (11.0-16.0) g/dL Hct 32.1 L (34.0-47.0) % MCV 73.3 L (81.0-99.0) fL MCH 23.7 L (27.0-31.0) pg MCHC 32.3 L (33.0-37.0) g/dL RDW 24.7 H (11.5-14.5) % Plt Count 264 (130-400) K/uL MPV 8.3 (7.2-11.7) fL Neut % (Auto) 91.1 H (50.0-75.0) % Lymph % (Auto) 3.8 L (20.0-40.0) % [place] % (Auto) 5.0 (0.0-10.0) % Eos % (Auto) 0.0 (0.0-4.0) % Baso % (Auto) 0.1 (0.0-2.0) % Neut # 20.0 H (1.8-7.0) K/uL Lymph # 0.8 L (1.0-4.3) K/uL [place] # 1.1 H (0.0-0.8) K/uL Eos # 0.0 (0.0-0.7) K/uL Baso # 0.0 (0.0-0.2) K/uL Neutrophils % (Manual) 93 H (50-75) % Band Neutrophils % 1 (0-2) % Lymphocytes % (Manual) 3 L (20-40) % Monocytes % (Manual) 3 (0-10) % Platelet Estimate Normal (NORMAL) Large Platelets Present Hypochromasia (manual) Slight Poikilocytosis (manual Slight Anisocytosis (manual) Slight Tear Drop Cells Slight Ovalocytes Slight [place] Cells Slight Sodium 131 L (132-148) mmol/L Potassium 2.3 L* (3.6-5.2) mmol/L Chloride 96 L (98-107) mmol/L Carbon Dioxide 27 (22-30) mmol/L Anion Gap 10 (10-20) BUN 9 (7-17) mg/dL Creatinine 0.5 L (0.7-1.2) MG/DL Est GFR ( Amer) > 60 Est GFR (Non-Af Amer) > 60 Random Glucose 140 H (65-105) mg/dL Calcium 6.6 L (8.6-10.4) mg/dl Phosphorus 2.0 L (2.5-4.5) mg/dL Magnesium 1.7 (1.6-2.3) mg/dL Total Bilirubin 1.7 H (0.2-1.3) mg/dL AST 113 H D (14-36) U/L ALT 38 (9-52) U/L Alkaline Phosphatase 84 (38-126) U/L Total Protein 5.8 L (6.3-8.3) g/dL Albumin 2.8 L (3.5-5.0) g/dL Globulin 3.0 (2.2-3.9) gm/dL Albumin/Globulin Ratio 0.9 L (1.0-2.1) Laboratory Results - last 24 hr 04/02/17 04/02/17 06:24 06:24 WBC 22.0 H RBC 4.38 Hgb 10.4 L Hct 32.1 L MCV 73.3 L MCH 23.7 L MCHC 32.3 L RDW 24.7 H Plt Count 264 MPV 8.3 Neut % (Auto) 91.1 H Lymph % (Auto) 3.8 L [place] % (Auto) 5.0 Eos % (Auto) 0.0 Baso % (Auto) 0.1 Neut # 20.0 H Lymph # 0.8 L [place] # 1.1 H Eos # 0.0 Baso # 0.0 Neutrophils % (Manual) 93 H Band Neutrophils % 1 Lymphocytes % (Manual) 3 L Monocytes % (Manual) 3 Platelet Estimate Normal Large Platelets Present Hypochromasia (manual) Slight Poikilocytosis (manual Slight Anisocytosis (manual) Slight Tear Drop Cells Slight Ovalocytes Slight [place] Cells Slight Sodium 131 L Potassium 2.3 L* Chloride 96 L Carbon Dioxide 27 Anion Gap 10 BUN 9 Creatinine 0.5 L Est GFR ( Amer) > 60 Est GFR (Non-Af Amer) > 60 Random Glucose 140 H Calcium 6.6 L Phosphorus 2.0 L Magnesium 1.7 Total Bilirubin 1.7 H AST 113 H D ALT 38 Alkaline Phosphatase 84 Total Protein 5.8 L Albumin 2.8 L Globulin 3.0 Albumin/Globulin Ratio 0.9 L Fingerstick Blood Sugar Results: 286 Review of Systems - Review of Systems Systems not reviewed;Unavailable: Intubated Assessment/Plan - Assessment and Plan (Free Text) Assessment: 82yo Female with PMHx of multiple TIAs, HTN, Hypercholesterolemia, Blepharospasm - brought in via EMS. Cardiorepsiratory arrest. Intubated in field. Has remained unresponsive, on MV. Poor prognosis. Pt DNR/DNI. Plan: Pt status: DNR/DNI, admitted to ICU, will evaluate neuro function at 72 hours Neuro: Pt intubated Anoxic brain injury - pt found unresponsive for unknown length of time Pt responsive to deep stimulation, absent gag/cough, no corneal reflex, left/ right pupil not dilated, extremities flaccid Neuro consult: Dr. Roger Garay, help appreciated - Poor prognosis. Deteriorated neuro exam since yesterday with loss of brainstem reflexes. EEG (03/31/17): Abnormal EEG. Severe bihemespheric cerebral dysfxn. (see report) CV: Hx of HTN, HLD Metoprolol 5mg IV Q6H if SBP > 180 Hold home meds: Plavix, Simvastatin, Metoprolol, Norvasc ECHO (03/31/17): Moderate LV diastolic dysfxn. Mitral annular calcification. Moderate valvular aortic stenosis. Mild Mitral regurgitation. moderate pulm HTN. (see full report) Pulm: Intubated, on MV Vent settings: FiO2:30, PEEP 5, RR 14, TV: 450 CXR (03/30/17): Patchy ill-defined consolidative changes at the left lung base as well as right suprahilar region. Biapical pleural thickening with upper lobe granulomatous changes. (see full report) f/u CXR (03/31/17): Biapical pleural thickening with upper lobe granulomatous changes. Ill defined nodularity projecting over right apex. Bilateral hilar prominence, left greater than right. Tortuous ectatic aorta. Venous congestion. Bibasilar airspace opacities with trace b/l pleural effusions (see full report). Endo: Hgb A1C 5.5 /Renal: BUN/Cr WNL Hypokalemia - 2.3 on AM labs, repleted Hyponatremia - 131 this AM D5/NS @ 100 Hem: Hgb: 5.2 on admission (03/30/17), transfused 3 units on presentation - Hgb 10.4 this AM ID: Leukocytosis 22 Lactate 4.4 on presentation, 2.2 after fluid/blood rescusitation - Lactate reflection of cardiac arrest/dehydration, not sign of sepsis Blood cx (03/31/17): no growth for 24 hrs x 2 urine cx (03/31/17): E. Coli - Aztreonam 1gm Q8H Integumentary Wound care nurse for sacral wound - f/u reccs Prophylaxis: Protonix 40mg IV daily SCDs <Randy Dillon - Last Filed: 04/02/17 18:05> CCU Objective - Vital Signs / Intake & Output Vital Signs (Last 4 hours): Vital Signs Temp Pulse Resp BP Pulse Ox 04/02/17 17:01 69 14 148/71 100 04/02/17 16:01 68 14 160/76 H 100 04/02/17 16:00 96.2 F L 04/02/17 15:01 65 14 161/74 H 100 Intake and Output (Last 8hrs): Intake & Output 04/02/17 04/02/17 04/02/17 06:59 14:59 22:59 Intake Total 850 550 330 Output Total 1685 800 175 Balance -835 -250 155 Weight 150 lb Intake: Intake, IV Amount 850 550 300 R forearm 100 Right Antecubital 850 100 Right Forearm 350 300 Oral 30 Output: Urine 1685 800 175 Urethral (Morgan) 1685 800 175 - Medications Active Medications: Active Medications Generic Name Dose Route Start Last Admin Trade Name Freq PRN Reason Stop Dose Admin Aztreonam 1 gm/ Sodium 100 mls @ 100 mls/hr 03/31/17 02:30 04/02/17 17:54 Chloride IVPB 100 mls/hr Q8H [facility] Administration Vancomycin HCl 1,000 mg/ 250 mls @ 166.6 mls/hr 03/31/17 02:30 04/02/17 01:48 Sodium Chloride IVPB 166.6 mls/hr Q24H [facility] Administration Dextrose/Sodium Chloride 1,000 mls @ 100 mls/hr 04/01/17 14:30 04/02/17 10:51 Dextrose 5%/0.9% Ns 1000 Ml IV Not Given .Q10H [facility] Metoprolol Tartrate 5 mg 04/01/17 18:00 04/02/17 17:56 Lopressor IVP 5 mg Q6H [facility] Administration Pantoprazole Sodium 40 mg 03/31/17 10:00 04/02/17 09:25 Protonix Inj IVP 40 mg DAILY [facility] Administration - Patient Studies Lab Studies: Microbiology Studies 03/31/17 03:10 Blood Culture - Preliminary Blood-Venous NO GROWTH AFTER 48 HOURS 03/31/17 02:40 Blood Culture - Preliminary Blood-Venous NO GROWTH AFTER 48 HOURS 03/31/17 08:00 Urine Culture - Final Urine,Catheterized Escherichia Coli 03/31/17 08:00 MRSA Culture (Admit) - Final Nose MRSA NOT DETECTED Lab Studies 04/02/17 04/02/17 04/02/17 Range/Units 16:17 06:24 06:24 WBC 22.0 H (4.8-10.8) K/uL RBC 4.38 (3.80-5.20) Mil/uL Hgb 10.4 L (11.0-16.0) g/dL Hct 32.1 L (34.0-47.0) % MCV 73.3 L (81.0-99.0) fL MCH 23.7 L (27.0-31.0) pg MCHC 32.3 L (33.0-37.0) g/dL RDW 24.7 H (11.5-14.5) % Plt Count 264 (130-400) K/uL MPV 8.3 (7.2-11.7) fL Neut % (Auto) 91.1 H (50.0-75.0) % Lymph % (Auto) 3.8 L (20.0-40.0) % [place] % (Auto) 5.0 (0.0-10.0) % Eos % (Auto) 0.0 (0.0-4.0) % Baso % (Auto) 0.1 (0.0-2.0) % Neut # 20.0 H (1.8-7.0) K/uL Lymph # 0.8 L (1.0-4.3) K/uL [place] # 1.1 H (0.0-0.8) K/uL Eos # 0.0 (0.0-0.7) K/uL Baso # 0.0 (0.0-0.2) K/uL Neutrophils % (Manual) 93 H (50-75) % Band Neutrophils % 1 (0-2) % Lymphocytes % (Manual) 3 L (20-40) % Monocytes % (Manual) 3 (0-10) % Platelet Estimate Normal (NORMAL) Large Platelets Present Hypochromasia (manual) Slight Poikilocytosis (manual Slight Anisocytosis (manual) Slight Tear Drop Cells Slight Ovalocytes Slight [place] Cells Slight Sodium 134 131 L (132-148) mmol/L Potassium 3.5 L 2.3 L* (3.6-5.2) mmol/L Chloride 92 L 96 L (98-107) mmol/L Carbon Dioxide 28 27 (22-30) mmol/L Anion Gap 17 10 (10-20) BUN 9 9 (7-17) mg/dL Creatinine 0.5 L 0.5 L (0.7-1.2) MG/DL Est GFR ( Amer) > 60 > 60 Est GFR (Non-Af Amer) > 60 > 60 Random Glucose 127 H 140 H (65-105) mg/dL Calcium 7.3 L 6.6 L (8.6-10.4) mg/dl Phosphorus 2.0 L (2.5-4.5) mg/dL Magnesium 1.7 (1.6-2.3) mg/dL Total Bilirubin 1.7 H (0.2-1.3) mg/dL AST 113 H D (14-36) U/L ALT 38 (9-52) U/L Alkaline Phosphatase 84 (38-126) U/L Total Protein 5.8 L (6.3-8.3) g/dL Albumin 2.8 L (3.5-5.0) g/dL Globulin 3.0 (2.2-3.9) gm/dL Albumin/Globulin Ratio 0.9 L (1.0-2.1) Laboratory Results - last 24 hr 04/02/17 04/02/17 04/02/17 06:24 06:24 16:17 WBC 22.0 H RBC 4.38 Hgb 10.4 L Hct 32.1 L MCV 73.3 L MCH 23.7 L MCHC 32.3 L RDW 24.7 H Plt Count 264 MPV 8.3 Neut % (Auto) 91.1 H Lymph % (Auto) 3.8 L [place] % (Auto) 5.0 Eos % (Auto) 0.0 Baso % (Auto) 0.1 Neut # 20.0 H Lymph # 0.8 L [place] # 1.1 H Eos # 0.0 Baso # 0.0 Neutrophils % (Manual) 93 H Band Neutrophils % 1 Lymphocytes % (Manual) 3 L Monocytes % (Manual) 3 Platelet Estimate Normal Large Platelets Present Hypochromasia (manual) Slight Poikilocytosis (manual Slight Anisocytosis (manual) Slight Tear Drop Cells Slight Ovalocytes Slight [place] Cells Slight Sodium 131 L 134 Potassium 2.3 L* 3.5 L Chloride 96 L 92 L Carbon Dioxide 27 28 Anion Gap 10 17 BUN 9 9 Creatinine 0.5 L 0.5 L Est GFR ( Amer) > 60 > 60 Est GFR (Non-Af Amer) > 60 > 60 Random Glucose 140 H 127 H Calcium 6.6 L 7.3 L Phosphorus 2.0 L Magnesium 1.7 Total Bilirubin 1.7 H AST 113 H D ALT 38 Alkaline Phosphatase 84 Total Protein 5.8 L Albumin 2.8 L Globulin 3.0 Albumin/Globulin Ratio 0.9 L Attending/Attestation - Attestation I have personally seen and examined this patient.: Yes I have fully participated in the care of the patient.: Yes I have reviewed all pertinent clinical information: Yes Notes (Text): 04/02/17 18:04 I have seen and examined the patient. Medical records, lab studies, and imaging were reviewed by me and a management plan was formulated on multidisciplinary rounds with resident Dr. Quinones. I agree with their above documented assessment and plan. Waiting 72 hours before making full neurologic assessment. Patient has lost gag reflex. Family is aware and understands prognosis looks poor. Probable terminal extubation tomorrow. Critical Care Time 35 minutes. Multi-disciplinary rounds were performed with house staff, nursing, speech therapy, respiratory therapy, pharmacy and nutrition with integrated input from the primary team/attending and other consulting services. The documented time is cumulative and includes review of patient data/exams/labs/chart review and examination of the patient on rounds and throughout the day; time is exclusive of any procedures or teaching time.
[2017-04-02 16:30] LABS: SODIUM 134 mmol/L (132-148)
[2017-04-02 16:31] LABS: POTASSIUM 3.5 mmol/L (3.6-5.2)
[2017-04-02 16:33] LABS: GFR AFRICAN-AMERICAN > 60
[2017-04-02 16:34] LABS: BLOOD UREA NITROGEN 9 mg/dL (7-17); CALCIUM 7.3 mg/dl (8.6-10.4); CARBON DIOXIDE 28 mmol/L (22-30); GLUCOSE,RANDOM 127 mg/dL (65-105)
[2017-04-02] MEDS ORDERED: Potassium Chloride 20 mEq/15 ml LIQ UD PO ONE (18:00)
--- NOTE | 2017-04-02 20:18 | CP.PCM.PN ---
Subjective - Date & Time of Evaluation Date of Evaluation: 04/02/17 Time of Evaluation: 16:45 - Subjective Subjective: Hospitalist Progress Note (Patient was seen and examined 4:45 PM 04/02/17 ICU 14A) 82 year old female who was admitted on the ski maker wood hours on 03/31/17 s/p cardiopulmonary arrest. Patient was made DNR/DNI by family as per patient's wishes and patient is for terminal extubation ROS: this was not possible secondary to patient being intubated. Exam: HEENT: NCA, Right Pupil is round and now dilated and fixed and nonreactive to light when compared to 04/01/17 exam, Left pupil is oval in shape and is fixed, NO lymphadenopathy, Oral mucosa and nasal turbinates are dry, NO thyromegaly Cardio: NS1 and NS2, NO M/R/G Respiratory: Course breath sounds throughout the auscultatory field GI: BSx4 are reduced, Soft, NO HSM Ext: NO edema, Pulses are strong and equal, Capillary refill is 2 seconds Neuro: exam not possible Assessment and Plan: 1). Cardiopulmonary Arrest CT Head did not show any acute bleed 2D Echo shows moderate ventricular diastolic dysfunction, moderate aortic stenosis, annular calcification, moderate pulmonary htn CXR shows ill defined nodularity at the right lung apex, venous congestion, trace pleural effusion EEG report pending Neurology: Dr. Lucia Garay help is appreciated Palliative Care Obradovic help is appreciated 2). Anemia Secondary to ? S/P 3 Units PRBC upon admission and HgB/Hct stable 3). Metabolic Acidosis Treated with Bicarb drip which was D/C'd 4). Hypokalemia Likely secondary to the Bicarb Drip Improved to 3.5 with repletion and 40 mEQ given today 5). Leukocytosis Blood Culture 03/31/17 is negative to date Urine Culture 03/31/17 is positive for E.coli Aztreonam 1 gm IV Q8H Vancomycin 1 gm IV Q24 F/U Vancomycin Trough 2 AM 04/03/17 6). Diarrhea F/U Stool Culture F/U O&P x 3 starting 04/01/17 F/U C. diff toxin 7). Elevated Blood Pressure Metoprolol 5 mg IV Q6H PRN SBP >180 8). Sacral Wound F/U Wound Care recommendations 9). Prophylactic Measure Protonix 40 mg IV 1x/day B/L SCDs: NO anticoagulation Jayce Lehman D.O. Objective - Vital Signs/Intake and Output Vital Signs (last 24 hours): Temp Pulse Resp BP Pulse Ox 96.2 F L 61 14 159/66 H 100 04/02/17 16:00 04/02/17 19:01 04/02/17 19:01 04/02/17 19:01 04/02/17 19:01 Intake and Output: 04/02/17 04/03/17 18:59 06:59 Intake Total 1080 100 Output Total 1245 140 Balance -165 -40 - Medications Medications: Current Medications Aztreonam 1 gm/ Sodium (Chloride) 100 mls @ 100 mls/hr IVPB Q8H [facility] Last Admin: 04/02/17 17:54 Dose: 100 mls/hr Vancomycin HCl 1,000 mg/ (Sodium Chloride) 250 mls @ 166.6 mls/hr IVPB Q24H [facility] Last Admin: 04/02/17 01:48 Dose: 166.6 mls/hr Dextrose/Sodium Chloride (Dextrose 5%/0.9% Ns 1000 Ml) 1,000 mls @ 100 mls/hr IV .Q10H [facility] Last Admin: 04/02/17 10:51 Dose: Not Given Metoprolol Tartrate (Lopressor) 5 mg IVP Q6H [facility] Last Admin: 04/02/17 17:56 Dose: 5 mg Pantoprazole Sodium (Protonix Inj) 40 mg IVP DAILY [facility] Last Admin: 04/02/17 09:25 Dose: 40 mg - Labs Labs: 04/02/17 06:24 04/02/17 16:17 PT 13.9 SECONDS (9.7-12.2) H 03/30/17 23:55 INR 1.2 03/30/17 23:55 APTT 49 SECONDS (21-34) H 03/30/17 23:55
[2017-04-03] MEDS: Metoprolol 1 mg/ml Inj IVP SCH ×2 (01:00→06:07)
[2017-04-03] MEDS: Aztreonam 1 GM in Sodium Chloride 0.9% 100 ML IVPB SCH ×2 (01:30→10:27)
[2017-04-03] MEDS: Dextrose 5%/0.9% NS 1,000 ML IV SCH (06:06)
--- NOTE | 2017-04-03 06:26 | CP.CCUPN ---
<Jim Quinones - Last Filed: 04/03/17 11:23> CCU Subjective - Physician Review Subjective (Free Text): 04/03/17 06:24 Pt seen and examined at bedside. Pt terminally extubated this AM. 72 hour window full neuro assessment shows continued deterioration. Neuro exam same as yesterday: pt unresponsive deep stimuli, absent gag reflex, no corneal reflex, left eye fixed and dilated, as is right eye today. ROS unavailable due to pt condition. Critical Care Time Spent (in minutes): 40 CCU Objective - Vital Signs / Intake & Output Vital Signs (Last 4 hours): Vital Signs Temp Pulse Resp BP Pulse Ox 04/03/17 04:01 76 16 173/89 H 100 04/03/17 04:00 96.3 F L 76 17 99 04/03/17 03:01 80 14 172/90 H 100 04/03/17 03:00 79 13 99 04/03/17 02:32 82 14 202/103 H 99 Intake and Output (Last 8hrs): Intake & Output 04/02/17 04/02/17 04/03/17 14:59 22:59 06:59 Intake Total 550 930 750 Output Total 800 1095 970 Balance -250 -165 -220 Intake: Intake, IV Amount 550 850 750 R forearm 100 Right Antecubital 100 Right Forearm 350 850 750 Oral 80 0 Output: Urine 800 1095 970 Urethral (Morgan) 800 1095 970 - Physical Exam Head: Positive for: Atraumatic Pupils: Positive for: Non-Reactive (Left fixed, unreactive), Other Extroacular Muscles: Positive for: Other (fixed) Conjunctiva: Positive for: Normal Mouth: Positive for: Dry Neck: Positive for: Normal Range of Motion Respiratory/Chest: Positive for: Other (on mv support) Cardiovascular: Positive for: Regular Rate and Rhythm, Normal S1, S2 Abdomen: Negative for: Normal Bowel Sounds (hypoactive) Neurological: Positive for: Other (post-hypoxic myoclonus; 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; no cough/gag, unarousable to deep stimuli) Psychiatric: Negative for: Alert, Oriented x 3, Normal Insight, Normal Concentration - Medications Active Medications: Active Medications Generic Name Dose Route Start Last Admin Trade Name Freq PRN Reason Stop Dose Admin Aztreonam 1 gm/ Sodium 100 mls @ 100 mls/hr 03/31/17 02:30 04/03/17 01:30 Chloride IVPB 100 mls/hr Q8H DELROY Administration Vancomycin HCl 1,000 mg/ 250 mls @ 166.6 mls/hr 03/31/17 02:30 04/03/17 02:00 Sodium Chloride IVPB 166.6 mls/hr Q24H DELROY Administration Dextrose/Sodium Chloride 1,000 mls @ 100 mls/hr 04/01/17 14:30 04/03/17 06:06 Dextrose 5%/0.9% Ns 1000 Ml IV Not Given .Q10H DELROY Metoprolol Tartrate 5 mg 04/01/17 18:00 04/03/17 06:07 Lopressor IVP 5 mg Q6H DELROY Administration Pantoprazole Sodium 40 mg 03/31/17 10:00 04/02/17 09:25 Protonix Inj IVP 40 mg DAILY DELROY Administration - Patient Studies Lab Studies: Microbiology Studies 03/31/17 03:10 Blood Culture - Preliminary Blood-Venous NO GROWTH AFTER 48 HOURS 03/31/17 02:40 Blood Culture - Preliminary Blood-Venous NO GROWTH AFTER 48 HOURS 03/31/17 08:00 Urine Culture - Final Urine,Catheterized Escherichia Coli Lab Studies 04/02/17 04/02/17 04/02/17 Range/Units 16:17 06:24 06:24 WBC 22.0 H (4.8-10.8) K/uL RBC 4.38 (3.80-5.20) Mil/uL Hgb 10.4 L (11.0-16.0) g/dL Hct 32.1 L (34.0-47.0) % MCV 73.3 L (81.0-99.0) fL MCH 23.7 L (27.0-31.0) pg MCHC 32.3 L (33.0-37.0) g/dL RDW 24.7 H (11.5-14.5) % Plt Count 264 (130-400) K/uL MPV 8.3 (7.2-11.7) fL Neut % (Auto) 91.1 H (50.0-75.0) % Lymph % (Auto) 3.8 L (20.0-40.0) % [place] % (Auto) 5.0 (0.0-10.0) % Eos % (Auto) 0.0 (0.0-4.0) % Baso % (Auto) 0.1 (0.0-2.0) % Neut # 20.0 H (1.8-7.0) K/uL Lymph # 0.8 L (1.0-4.3) K/uL [place] # 1.1 H (0.0-0.8) K/uL Eos # 0.0 (0.0-0.7) K/uL Baso # 0.0 (0.0-0.2) K/uL Neutrophils % (Manual) 93 H (50-75) % Band Neutrophils % 1 (0-2) % Lymphocytes % (Manual) 3 L (20-40) % Monocytes % (Manual) 3 (0-10) % Platelet Estimate Normal (NORMAL) Large Platelets Present Hypochromasia (manual) Slight Poikilocytosis (manual Slight Anisocytosis (manual) Slight Tear Drop Cells Slight Ovalocytes Slight [place] Cells Slight Sodium 134 131 L (132-148) mmol/L Potassium 3.5 L 2.3 L* (3.6-5.2) mmol/L Chloride 92 L 96 L (98-107) mmol/L Carbon Dioxide 28 27 (22-30) mmol/L Anion Gap 17 10 (10-20) BUN 9 9 (7-17) mg/dL Creatinine 0.5 L 0.5 L (0.7-1.2) MG/DL Est GFR ( Amer) > 60 > 60 Est GFR (Non-Af Amer) > 60 > 60 Random Glucose 127 H 140 H (65-105) mg/dL Calcium 7.3 L 6.6 L (8.6-10.4) mg/dl Phosphorus 2.0 L (2.5-4.5) mg/dL Magnesium 1.7 (1.6-2.3) mg/dL Total Bilirubin 1.7 H (0.2-1.3) mg/dL AST 113 H D (14-36) U/L ALT 38 (9-52) U/L Alkaline Phosphatase 84 (38-126) U/L Total Protein 5.8 L (6.3-8.3) g/dL Albumin 2.8 L (3.5-5.0) g/dL Globulin 3.0 (2.2-3.9) gm/dL Albumin/Globulin Ratio 0.9 L (1.0-2.1) Laboratory Results - last 24 hr 04/02/17 04/02/17 04/02/17 06:24 06:24 16:17 WBC 22.0 H RBC 4.38 Hgb 10.4 L Hct 32.1 L MCV 73.3 L MCH 23.7 L MCHC 32.3 L RDW 24.7 H Plt Count 264 MPV 8.3 Neut % (Auto) 91.1 H Lymph % (Auto) 3.8 L [place] % (Auto) 5.0 Eos % (Auto) 0.0 Baso % (Auto) 0.1 Neut # 20.0 H Lymph # 0.8 L [place] # 1.1 H Eos # 0.0 Baso # 0.0 Neutrophils % (Manual) 93 H Band Neutrophils % 1 Lymphocytes % (Manual) 3 L Monocytes % (Manual) 3 Platelet Estimate Normal Large Platelets Present Hypochromasia (manual) Slight Poikilocytosis (manual Slight Anisocytosis (manual) Slight Tear Drop Cells Slight Ovalocytes Slight [place] Cells Slight Sodium 131 L 134 Potassium 2.3 L* 3.5 L Chloride 96 L 92 L Carbon Dioxide 27 28 Anion Gap 10 17 BUN 9 9 Creatinine 0.5 L 0.5 L Est GFR ( Amer) > 60 > 60 Est GFR (Non-Af Amer) > 60 > 60 Random Glucose 140 H 127 H Calcium 6.6 L 7.3 L Phosphorus 2.0 L Magnesium 1.7 Total Bilirubin 1.7 H AST 113 H D ALT 38 Alkaline Phosphatase 84 Total Protein 5.8 L Albumin 2.8 L Globulin 3.0 Albumin/Globulin Ratio 0.9 L Fingerstick Blood Sugar Results: 286 Review of Systems - Review of Systems Systems not reviewed;Unavailable: Intubated Assessment/Plan - Assessment and Plan (Free Text) Assessment: 82yo Female with PMHx of multiple TIAs, HTN, Hypercholesterolemia, Blepharospasm - brought in via EMS. Cardiorepsiratory arrest. Intubated in field. Has remained unresponsive, on MV. Poor prognosis. Pt DNR/DNI. Terminally extubated. Plan: Pt status: DNR/DNI, terminally extubated per pt's previously expressed wishes, no more labs ordered Neuro: Pt terminally extubated Anoxic brain injury - pt found unresponsive for unknown length of time Pt responsive to deep stimulation, absent gag/cough, no corneal reflex, left/ right pupil not dilated, extremities flaccid Neuro consult: Dr. Roger Garay, help appreciated - Poor prognosis. Deteriorated neuro exam since yesterday with loss of brainstem reflexes. EEG (03/31/17): Abnormal EEG. Severe bihemespheric cerebral dysfxn. (see report) CV: Hx of HTN, HLD Metoprolol 5mg IV Q6H if SBP > 180 DISCONTINUED Hold home meds: Plavix, Simvastatin, Metoprolol, Norvasc ECHO (03/31/17): Moderate LV diastolic dysfxn. Mitral annular calcification. Moderate valvular aortic stenosis. Mild Mitral regurgitation. moderate pulm HTN. (see full report) Pulm: Terminally extubated CXR (03/30/17): Patchy ill-defined consolidative changes at the left lung base as well as right suprahilar region. Biapical pleural thickening with upper lobe granulomatous changes. (see full report) f/u CXR (03/31/17): Biapical pleural thickening with upper lobe granulomatous changes. Ill defined nodularity projecting over right apex. Bilateral hilar prominence, left greater than right. Tortuous ectatic aorta. Venous congestion. Bibasilar airspace opacities with trace b/l pleural effusions (see full report). Endo: Hgb A1C 5.5 /Renal: BUN/Cr WNL Hypokalemia - 2.3 on AM labs, repleted Hyponatremia - 131 this AM Hem: Hgb: 5.2 on admission (03/30/17), transfused 3 units on presentation - Hgb 10.4 this AM ID: Leukocytosis 21.7 Lactate 4.4 on presentation, 2.2 after fluid/blood rescusitation - Lactate reflection of cardiac arrest/dehydration, not sign of sepsis Blood cx (03/31/17): no growth for 3 days x 2 urine cx (03/31/17): E. Coli - Aztreonam 1gm Q8H Discontinued Integumentary Wound care nurse for sacral wound - f/u reccs Prophylaxis: SCDs <Randy Dillon - Last Filed: 04/03/17 14:02> CCU Objective - Vital Signs / Intake & Output Vital Signs (Last 4 hours): Vital Signs Temp Pulse Resp BP Pulse Ox 04/03/17 12:01 91 H 15 176/89 H 100 04/03/17 12:00 97.6 F 80 12 100 04/03/17 11:01 92 H 17 139/89 100 Intake and Output (Last 8hrs): Intake & Output 04/02/17 04/03/17 04/03/17 22:59 06:59 14:59 Intake Total 930 950 430 Output Total 1095 1320 1380 Balance -165 -370 -950 Weight 152 lb Intake: Intake, IV Amount 850 950 400 Right Forearm 850 950 400 Right arm FA Y port 0 Oral 80 0 30 Output: Urine 1095 1320 1380 Urethral (Morgan) 1095 1320 1380 Other: # Bowel Movements 0 - Patient Studies Lab Studies: Microbiology Studies 03/31/17 03:10 Blood Culture - Preliminary Blood-Venous NO GROWTH AFTER 3 DAYS 03/31/17 02:40 Blood Culture - Preliminary Blood-Venous NO GROWTH AFTER 3 DAYS Lab Studies 04/03/17 04/03/17 04/03/17 Range/Units 06:43 06:43 06:43 WBC 21.7 H (4.8-10.8) K/uL RBC 4.80 (3.80-5.20) Mil/uL Hgb 11.1 (11.0-16.0) g/dL Hct 36.2 (34.0-47.0) % MCV 75.4 L D (81.0-99.0) fL MCH 23.2 L (27.0-31.0) pg MCHC 30.8 L (33.0-37.0) g/dL RDW 24.8 H (11.5-14.5) % Plt Count 216 (130-400) K/uL MPV 8.0 (7.2-11.7) fL Neut % (Auto) 92.9 H (50.0-75.0) % Lymph % (Auto) 2.7 L (20.0-40.0) % [place] % (Auto) 4.2 (0.0-10.0) % Eos % (Auto) 0.0 (0.0-4.0) % Baso % (Auto) 0.2 (0.0-2.0) % Neut # 20.2 H (1.8-7.0) K/uL Lymph # 0.6 L (1.0-4.3) K/uL [place] # 0.9 H (0.0-0.8) K/uL Eos # 0.0 (0.0-0.7) K/uL Baso # 0.0 (0.0-0.2) K/uL Neutrophils % (Manual) 94 H (50-75) % Band Neutrophils % 1 (0-2) % Lymphocytes % (Manual) 2 L (20-40) % Monocytes % (Manual) 3 (0-10) % Platelet Estimate Normal (NORMAL) Large Platelets Present Polychromasia Slight Hypochromasia (manual) Slight Poikilocytosis (manual Slight Anisocytosis (manual) Slight Target Cells Slight [place] Cells Slight Sodium 133 (132-148) mmol/L Potassium 3.0 L (3.6-5.2) mmol/L Chloride 101 (98-107) mmol/L Carbon Dioxide 25 (22-30) mmol/L Anion Gap 10 (10-20) BUN 8 (7-17) mg/dL Creatinine 0.4 L (0.7-1.2) MG/DL Est GFR ( Amer) > 60 Est GFR (Non-Af Amer) > 60 Random Glucose 147 H (65-105) mg/dL Calcium 7.3 L (8.6-10.4) mg/dl Total Bilirubin 1.6 H (0.2-1.3) mg/dL AST 90 H D (14-36) U/L ALT 36 (9-52) U/L Alkaline Phosphatase 95 (38-126) U/L Total Protein 6.2 L (6.3-8.3) g/dL Albumin 2.8 L (3.5-5.0) g/dL Globulin 3.4 (2.2-3.9) gm/dL Albumin/Globulin Ratio 0.8 L (1.0-2.1) Vancomycin Trough 17.2 H (5.0-10.0) ug/mL 04/02/17 Range/Units 16:17 WBC (4.8-10.8) K/uL RBC (3.80-5.20) Mil/uL Hgb (11.0-16.0) g/dL Hct (34.0-47.0) % MCV (81.0-99.0) fL MCH (27.0-31.0) pg MCHC (33.0-37.0) g/dL RDW (11.5-14.5) % Plt Count (130-400) K/uL MPV (7.2-11.7) fL Neut % (Auto) (50.0-75.0) % Lymph % (Auto) (20.0-40.0) % [place] % (Auto) (0.0-10.0) % Eos % (Auto) (0.0-4.0) % Baso % (Auto) (0.0-2.0) % Neut # (1.8-7.0) K/uL Lymph # (1.0-4.3) K/uL [place] # (0.0-0.8) K/uL Eos # (0.0-0.7) K/uL Baso # (0.0-0.2) K/uL Neutrophils % (Manual) (50-75) % Band Neutrophils % (0-2) % Lymphocytes % (Manual) (20-40) % Monocytes % (Manual) (0-10) % Platelet Estimate (NORMAL) Large Platelets Polychromasia Hypochromasia (manual) Poikilocytosis (manual Anisocytosis (manual) Target Cells [place] Cells Sodium 134 (132-148) mmol/L Potassium 3.5 L (3.6-5.2) mmol/L Chloride 92 L (98-107) mmol/L Carbon Dioxide 28 (22-30) mmol/L Anion Gap 17 (10-20) BUN 9 (7-17) mg/dL Creatinine 0.5 L (0.7-1.2) MG/DL Est GFR ( Amer) > 60 Est GFR (Non-Af Amer) > 60 Random Glucose 127 H (65-105) mg/dL Calcium 7.3 L (8.6-10.4) mg/dl Total Bilirubin (0.2-1.3) mg/dL AST (14-36) U/L ALT (9-52) U/L Alkaline Phosphatase (38-126) U/L Total Protein (6.3-8.3) g/dL Albumin (3.5-5.0) g/dL Globulin (2.2-3.9) gm/dL Albumin/Globulin Ratio (1.0-2.1) Vancomycin Trough (5.0-10.0) ug/mL Laboratory Results - last 24 hr 04/02/17 04/03/17 04/03/17 16:17 06:43 06:43 WBC 21.7 H RBC 4.80 Hgb 11.1 Hct 36.2 MCV 75.4 L D MCH 23.2 L MCHC 30.8 L RDW 24.8 H Plt Count 216 MPV 8.0 Neut % (Auto) 92.9 H Lymph % (Auto) 2.7 L [place] % (Auto) 4.2 Eos % (Auto) 0.0 Baso % (Auto) 0.2 Neut # 20.2 H Lymph # 0.6 L [place] # 0.9 H Eos # 0.0 Baso # 0.0 Neutrophils % (Manual) 94 H Band Neutrophils % 1 Lymphocytes % (Manual) 2 L Monocytes % (Manual) 3 Platelet Estimate Normal Large Platelets Present Polychromasia Slight Hypochromasia (manual) Slight Poikilocytosis (manual Slight Anisocytosis (manual) Slight Target Cells Slight [place] Cells Slight Sodium 134 Potassium 3.5 L Chloride 92 L Carbon Dioxide 28 Anion Gap 17 BUN 9 Creatinine 0.5 L Est GFR ( Amer) > 60 Est GFR (Non-Af Amer) > 60 Random Glucose 127 H Calcium 7.3 L Total Bilirubin AST ALT Alkaline Phosphatase Total Protein Albumin Globulin Albumin/Globulin Ratio Vancomycin Trough 17.2 H 04/03/17 06:43 WBC RBC Hgb Hct MCV MCH MCHC RDW Plt Count MPV Neut % (Auto) Lymph % (Auto) [place] % (Auto) Eos % (Auto) Baso % (Auto) Neut # Lymph # [place] # Eos # Baso # Neutrophils % (Manual) Band Neutrophils % Lymphocytes % (Manual) Monocytes % (Manual) Platelet Estimate Large Platelets Polychromasia Hypochromasia (manual) Poikilocytosis (manual Anisocytosis (manual) Target Cells [place] Cells Sodium 133 Potassium 3.0 L Chloride 101 Carbon Dioxide 25 Anion Gap 10 BUN 8 Creatinine 0.4 L Est GFR ( Amer) > 60 Est GFR (Non-Af Amer) > 60 Random Glucose 147 H Calcium 7.3 L Total Bilirubin 1.6 H AST 90 H D ALT 36 Alkaline Phosphatase 95 Total Protein 6.2 L Albumin 2.8 L Globulin 3.4 Albumin/Globulin Ratio 0.8 L Vancomycin Trough Attending/Attestation - Attestation I have personally seen and examined this patient.: Yes I have fully participated in the care of the patient.: Yes I have reviewed all pertinent clinical information: Yes Notes (Text): 04/03/17 14:02 I have seen and examined the patient. Medical records, lab studies, and imaging were reviewed by me and a management plan was formulated on multidisciplinary rounds with resident Dr. Quinones. I agree with their above documented assessment and plan. Family has agreed to terminal extubation. Patient has deteriorating brain stem function at 72 hours post resuscitation and prognosis is grave. Critical Care Time 35 minutes. Multi-disciplinary rounds were performed with house staff, nursing, speech therapy, respiratory therapy, pharmacy and nutrition with integrated input from the primary team/attending and other consulting services. The documented time is cumulative and includes review of patient data/exams/labs/chart review and examination of the patient on rounds and throughout the day; time is exclusive of any procedures or teaching time.
[2017-04-03 06:46] LABS: BASO % 0.2 % (0.0-2.0); HEMATOCRIT 36.2 % (34.0-47.0); LYMPH # 0.6 K/uL (1.0-4.3); LYMPH % 2.7 % (20.0-40.0); MEAN CELL VOLUME 75.4 fL (81.0-99.0); MEAN CORPUSCULAR HEMOGLOBIN 23.2 pg (27.0-31.0); MEAN CORPUSCULAR HGB CONC 30.8 g/dL (33.0-37.0); MONO # 0.9 K/uL (0.0-0.8); MONO % 4.2 % (0.0-10.0); NRBC % 0.1 % (0.0-2.0); PLATELET COUNT 216 K/uL (130-400); RED CELL DISTRIBUTION WIDTH 24.8 % (11.5-14.5); WHITE BLOOD COUNT 21.7 K/uL (4.8-10.8)
[2017-04-03 07:01] LABS: CHLORIDE 101 mmol/L (98-107); SODIUM 133 mmol/L (132-148)
[2017-04-03 07:03] LABS: BILIRUBIN,TOTAL 1.6 mg/dL (0.2-1.3); GFR AFRICAN-AMERICAN > 60
[2017-04-03 07:04] LABS: ALB/GLOB RATIO 0.8 (1.0-2.1); ALKALINE PHOSPHATASE 95 U/L (38-126); ALT/SGPT 36 U/L (9-52); AST/SGOT 90 U/L (14-36); BLOOD UREA NITROGEN 8 mg/dL (7-17); CARBON DIOXIDE 25 mmol/L (22-30); GLUCOSE,RANDOM 147 mg/dL (65-105); TOTAL PROTEIN 6.2 g/dL (6.3-8.3)
[2017-04-03 07:05] LABS: CALCIUM 7.3 mg/dl (8.6-10.4)
[2017-04-03 08:07] VITALS: O2SAT 100
[2017-04-03 09:11] LABS: NEUTROPHIL 94 % (50-75); TOTAL CELLS COUNTED 100
[2017-04-03 09:12] LABS: LARGE PLATELETS PRESENT
[2017-04-03 13:01] VITALS: BP 176/89; PULSE 91; RESP 15; TEMP 97.6
--- NOTE | 2017-04-03 14:08 | CP.PCM.PN ---
Subjective - Date & Time of Evaluation Date of Evaluation: 04/03/17 Time of Evaluation: 14:07 - Subjective Subjective: Patient after terminal extubation at request of family. PMD: Dr. Marquis notified. Organ network notified not a candidate for donation. Not a medical reception case. Time of expiration: 1:52 pm 04/03/2017 Objective - Vital Signs/Intake and Output Vital Signs (last 24 hours): Temp Pulse Resp BP Pulse Ox 97.6 F 91 H 15 176/89 H 100 04/03/17 12:00 04/03/17 12:01 04/03/17 12:01 04/03/17 12:01 04/03/17 12:01 Intake and Output: 04/03/17 04/03/17 06:59 18:59 Intake Total 1350 430 Output Total 1970 1380 Balance -620 -950 - Labs Labs: 04/03/17 06:43 04/03/17 06:43 PT 13.9 SECONDS (9.7-12.2) H 03/30/17 23:55 INR 1.2 03/30/17 23:55 APTT 49 SECONDS (21-34) H 03/30/17 23:55
[2017-04-03 17:32] LABS: CHLORIDE 99 mmol/L (98-107)
--- NOTE | 2017-04-03 17:35 | CP.PCM.DIS ---
<Jim Quinones - Last Filed: 04/03/17 17:21> Provider - Provider Date of Admission: 03/31/17 00:38 Attending physician: Mack Elliott MD Primary care physician: Dr. Butcher, Dr. Oliver Consults: Neuro: Lucia Garay Time Spent in preparation of Discharge (in minutes): 45 Diagnosis - Discharge Diagnosis (1) Cardiac arrest Status: Acute Comment: see hospital course Hospital Course - Lab Results Lab Results: Micro Results 03/31/17 03:10 Blood-Venous Blood Culture - Preliminary NO GROWTH AFTER 3 DAYS 03/31/17 02:40 Blood-Venous Blood Culture - Preliminary NO GROWTH AFTER 3 DAYS 03/31/17 08:00 Urine,Catheterized Urine Culture - Final Escherichia Coli 03/31/17 08:00 Nose MRSA Culture (Admit) - Final MRSA NOT DETECTED Most Recent Lab Values WBC 21.7 K/uL (4.8-10.8) H 04/03/17 06:43 RBC 4.80 Mil/uL (3.80-5.20) 04/03/17 06:43 Hgb 11.1 g/dL (11.0-16.0) 04/03/17 06:43 Hct 36.2 % (34.0-47.0) 04/03/17 06:43 MCV 75.4 fL (81.0-99.0) L D 04/03/17 06:43 MCH 23.2 pg (27.0-31.0) L 04/03/17 06:43 MCHC 30.8 g/dL (33.0-37.0) L 04/03/17 06:43 RDW 24.8 % (11.5-14.5) H 04/03/17 06:43 Plt Count 216 K/uL (130-400) 04/03/17 06:43 MPV 8.0 fL (7.2-11.7) 04/03/17 06:43 Neut % (Auto) 92.9 % (50.0-75.0) H 04/03/17 06:43 Lymph % (Auto) 2.7 % (20.0-40.0) L 04/03/17 06:43 Craig % (Auto) 4.2 % (0.0-10.0) 04/03/17 06:43 Eos % (Auto) 0.0 % (0.0-4.0) 04/03/17 06:43 Baso % (Auto) 0.2 % (0.0-2.0) 04/03/17 06:43 Neut # 20.2 K/uL (1.8-7.0) H 04/03/17 06:43 Lymph # 0.6 K/uL (1.0-4.3) L 04/03/17 06:43 Craig # 0.9 K/uL (0.0-0.8) H 04/03/17 06:43 Eos # 0.0 K/uL (0.0-0.7) 04/03/17 06:43 Baso # 0.0 K/uL (0.0-0.2) 04/03/17 06:43 Neutrophils % (Manual) 94 % (50-75) H 04/03/17 06:43 Band Neutrophils % 1 % (0-2) 04/03/17 06:43 Lymphocytes % (Manual) 2 % (20-40) L 04/03/17 06:43 Monocytes % (Manual) 3 % (0-10) 04/03/17 06:43 Eosinophils % (Manual) 1 % (0-4) 03/30/17 23:55 Myelocytes % 1 % (0-0) H 03/30/17 23:55 Nucleated RBC % 1 % (0-0) H 03/30/17 23:55 Platelet Estimate Normal (NORMAL) 04/03/17 06:43 Large Platelets Present 04/03/17 06:43 Giant Platelets Present 04/01/17 06:24 Polychromasia Slight 04/03/17 06:43 Hypochromasia (manual) Slight 04/03/17 06:43 Poikilocytosis (manual Slight 04/03/17 06:43 Anisocytosis (manual) Slight 04/03/17 06:43 Microcytosis (manual) Slight 04/01/17 06:24 Macrocytosis (manual) Slight 04/01/17 06:24 Target Cells Slight 04/03/17 06:43 Tear Drop Cells Slight 04/02/17 06:24 Ovalocytes Slight 04/02/17 06:24 [place] Cells Slight 04/03/17 06:43 PT 13.9 SECONDS (9.7-12.2) H 03/30/17 23:55 INR 1.2 03/30/17 23:55 APTT 49 SECONDS (21-34) H 03/30/17 23:55 D-Dimer, Quantitative Cancelled 03/30/17 23:55 Puncture Site Rb 04/01/17 04:15 pCO2 31 mm/Hg (35-45) L 04/01/17 04:15 pO2 104 mm/Hg (80-100) H 04/01/17 04:15 HCO3 29.8 mmol/L (21-28) H 04/01/17 04:15 ABG pH 7.57 (7.35-7.45) H 04/01/17 04:15 ABG Total CO2 29.4 mmol/L (22-28) H 04/01/17 04:15 ABG O2 Saturation 97.5 % (95-98) 04/01/17 04:15 ABG Base Excess 6.3 mmol/L (-2.0-3.0) H 04/01/17 04:15 ABG Hemoglobin 10.0 g/dL (11.7-17.4) L 04/01/17 04:15 ABG Carboxyhemoglobin 0.8 % (0.5-1.5) 04/01/17 04:15 POC ABG HHb (Measured) 2.4 % (0.0-5.0) 04/01/17 04:15 ABG Methemoglobin 1.2 % (0.0-3.0) 04/01/17 04:15 Hernandez Test Na 04/01/17 04:15 ABG Potassium 3.3 mmol/L (3.6-5.2) L 03/31/17 05:11 A-a O2 Difference 71.0 mm/Hg 04/01/17 04:15 Respiratory Index 0.7 04/01/17 04:15 Hgb O2 Saturation 95.5 % (95.0-98.0) 04/01/17 04:15 Sodium 144.0 mmol/l (132-148) 03/31/17 05:11 Chloride 115.0 mmol/L (98-107) H 03/31/17 05:11 Glucose 220 mg/dl (65-105) H 03/31/17 05:11 Lactate 2.8 mmol/L (0.7-2.1) H 03/31/17 05:11 Mechanical Rate 14 04/01/17 04:15 FiO2 30.0 % 04/01/17 04:15 Tidal Volume 450 04/01/17 04:15 PEEP 5 04/01/17 04:15 Crit Value Called To Dr. gonzalez 03/31/17 02:34 Crit Value Called By Daniel central aisle cashier 03/31/17 02:34 Crit Value Read Back Y 03/31/17 02:34 Blood Gas Notified Time 238 03/31/17 02:34 Sodium 133 mmol/L (132-148) 04/03/17 06:43 Potassium 3.0 mmol/L (3.6-5.2) L 04/03/17 06:43 Chloride 101 mmol/L (98-107) 04/03/17 06:43 Carbon Dioxide 25 mmol/L (22-30) 04/03/17 06:43 Anion Gap 10 (10-20) 04/03/17 06:43 BUN 8 mg/dL (7-17) 04/03/17 06:43 Creatinine 0.4 MG/DL (0.7-1.2) L 04/03/17 06:43 Est GFR ( Amer) > 60 04/03/17 06:43 Est GFR (Non-Af Amer) > 60 04/03/17 06:43 POC Glucose (mg/dL) 286 mg/dL (65-110) H 03/30/17 23:54 Random Glucose 147 mg/dL (65-105) H 04/03/17 06:43 Hemoglobin A1c 5.5 % (4.2-6.5) 03/31/17 06:51 Calcium 7.3 mg/dl (8.6-10.4) L 04/03/17 06:43 Phosphorus 2.0 mg/dL (2.5-4.5) L 04/02/17 06:24 Magnesium 1.7 mg/dL (1.6-2.3) 04/02/17 06:24 Total Bilirubin 1.6 mg/dL (0.2-1.3) H 04/03/17 06:43 AST 90 U/L (14-36) H D 04/03/17 06:43 ALT 36 U/L (9-52) 04/03/17 06:43 Alkaline Phosphatase 95 U/L (38-126) 04/03/17 06:43 Troponin I 0.0550 ng/mL (0.00-0.120) 03/30/17 23:55 Total Protein 6.2 g/dL (6.3-8.3) L 04/03/17 06:43 Albumin 2.8 g/dL (3.5-5.0) L 04/03/17 06:43 Globulin 3.4 gm/dL (2.2-3.9) 04/03/17 06:43 Albumin/Globulin Ratio 0.8 (1.0-2.1) L 04/03/17 06:43 Arterial Blood Potassium 3.3 mmol/L (3.6-5.2) L 03/31/17 05:11 Urine Color Yellow (YELLOW) 03/31/17 06:29 Urine Clarity Hazy (Clear) 03/31/17 06:29 Urine pH 5.0 (5.0-8.0) 03/31/17 06:29 Ur Specific [place] 1.010 (1.003-1.030) 03/31/17 06:29 Urine Protein 1+ mg/dL (NEGATIVE) H 03/31/17 06:29 Urine Glucose (UA) Normal mg/dL (Normal) 03/31/17 06:29 Urine Ketones Negative mg/dL (NEGATIVE) 03/31/17 06:29 Urine Blood 3+ (NEGATIVE) H 03/31/17 06:29 Urine Nitrate Negative (NEGATIVE) 03/31/17 06:29 Urine Bilirubin Negative (NEGATIVE) 03/31/17 06:29 Urine Urobilinogen 4.0 mg/dL (0.2-1.0) H 03/31/17 06:29 Ur Leukocyte Esterase Trace [place]/uL (Negative) 03/31/17 06:29 Urine WBC (Auto) 12 /hpf (0-5) H 03/31/17 06:29 Urine RBC (Auto) 4 /hpf (0-3) H 03/31/17 06:29 Ur Squamous Epith Cells < 1 /hpf (0-5) 03/31/17 06:29 Urine Bacteria Occ (<OCC) H 03/31/17 06:29 Hyaline Casts 0-2 /lpf (0-2) 03/31/17 06:29 Stool Occult Blood Negative (NEGATIVE) 03/31/17 07:49 Vancomycin Trough 17.2 ug/mL (5.0-10.0) H 04/03/17 06:43 Blood Type A POSITIVE 03/31/17 01:37 Blood Type Confirm A POSITIVE 03/31/17 01:37 Antibody Screen Negative 03/31/17 01:37 - Hospital Course Hospital Course: On admission: 82yo Female with PMHx TIA, HTN, Hypercholesterolemia, Blepharospasm - brought in via EMS after being found unresponsive by her son in their apartment. All history conveyed by patients Son and Grandson. Patient was last seen at 20:30 this evening watching TV. No unusual events noted during this day. At 22:00, the patient was found face down into the couch, resting over the arm rest, with her walker tipper over next to her. The son believes she was walking back from the bathroom, but he did not hear anything unusual, and is unsure how long she was in that position. He notes that over the past week, his mother appeared more pale and seemed to move slower than usual. She fell after dinner yesterday , however he reports these falls occur periodically. He denies any LOC, head trauma, abnormal speech/behavior, or general injury following this fall. Once EMS arrived, she was found to be in cardio-pulmonary arrest. Per nursing report , they performed CPR for 15 minutes and administered 2 doses of epinephrine before regaining pulses. An LMA was inserted in the field. Hospital course: Pt found unresponsive on evening of 03/31. CPR for 15 mins in field, 2 doses of epi given, achieved ROSC. Pt taken to [facility] [place] ED, intubated upon arrival, and placed on ventilator. Pt initially arousable to deep stimuli, with weak cough/ gag, and intact corneal reflex. Over course pts reflexes extinguished. EEG showed severe bihemespheric cerebral dysfunction. Pt had expressed to sons desire to not to 'be kept alive by machine.' Sons agreed to remove pt off life support as meaningful recovery could not be expected. Discharge Plan - Follow Up Plan Condition: Disposition: WITH WITHOUT AUTOPSY <Renzo Butcher - Last Filed: 05/02/17 10:14> Provider - Provider Date of Admission: 03/31/17 00:38 Attending physician: Mack Elliott MD Hospital Course - Lab Results Lab Results: Micro Results 03/31/17 03:10 Blood-Venous Blood Culture - Final NO GROWTH AFTER 5 DAYS 03/31/17 03:10 Blood-Venous Gram Stain - Final TEST NOT PERFORMED 03/31/17 02:40 Blood-Venous Blood Culture - Final NO GROWTH AFTER 5 DAYS 03/31/17 02:40 Blood-Venous Gram Stain - Final TEST NOT PERFORMED 03/31/17 08:00 Urine,Catheterized Urine Culture - Final Escherichia Coli 03/31/17 08:00 Nose MRSA Culture (Admit) - Final MRSA NOT DETECTED Most Recent Lab Values WBC 21.7 K/uL (4.8-10.8) H 04/03/17 06:43 RBC 4.80 Mil/uL (3.80-5.20) 04/03/17 06:43 Hgb 11.1 g/dL (11.0-16.0) 04/03/17 06:43 Hct 36.2 % (34.0-47.0) 04/03/17 06:43 MCV 75.4 fL (81.0-99.0) L D 04/03/17 06:43 MCH 23.2 pg (27.0-31.0) L 04/03/17 06:43 MCHC 30.8 g/dL (33.0-37.0) L 04/03/17 06:43 RDW 24.8 % (11.5-14.5) H 04/03/17 06:43 Plt Count 216 K/uL (130-400) 04/03/17 06:43 MPV 8.0 fL (7.2-11.7) 04/03/17 06:43 Neut % (Auto) 92.9 % (50.0-75.0) H 04/03/17 06:43 Lymph % (Auto) 2.7 % (20.0-40.0) L 04/03/17 06:43 Craig % (Auto) 4.2 % (0.0-10.0) 04/03/17 06:43 Eos % (Auto) 0.0 % (0.0-4.0) 04/03/17 06:43 Baso % (Auto) 0.2 % (0.0-2.0) 04/03/17 06:43 Neut # 20.2 K/uL (1.8-7.0) H 04/03/17 06:43 Lymph # 0.6 K/uL (1.0-4.3) L 04/03/17 06:43 Craig # 0.9 K/uL (0.0-0.8) H 04/03/17 06:43 Eos # 0.0 K/uL (0.0-0.7) 04/03/17 06:43 Baso # 0.0 K/uL (0.0-0.2) 04/03/17 06:43 Neutrophils % (Manual) 94 % (50-75) H 04/03/17 06:43 Band Neutrophils % 1 % (0-2) 04/03/17 06:43 Lymphocytes % (Manual) 2 % (20-40) L 04/03/17 06:43 Monocytes % (Manual) 3 % (0-10) 04/03/17 06:43 Eosinophils % (Manual) 1 % (0-4) 03/30/17 23:55 Myelocytes % 1 % (0-0) H 03/30/17 23:55 Nucleated RBC % 1 % (0-0) H 03/30/17 23:55 Platelet Estimate Normal (NORMAL) 04/03/17 06:43 Large Platelets Present 04/03/17 06:43 Giant Platelets Present 04/01/17 06:24 Polychromasia Slight 04/03/17 06:43 Hypochromasia (manual) Slight 04/03/17 06:43 Poikilocytosis (manual Slight 04/03/17 06:43 Anisocytosis (manual) Slight 04/03/17 06:43 Microcytosis (manual) Slight 04/01/17 06:24 Macrocytosis (manual) Slight 04/01/17 06:24 Target Cells Slight 04/03/17 06:43 Tear Drop Cells Slight 04/02/17 06:24 Ovalocytes Slight 04/02/17 06:24 Mao Cells Slight 04/03/17 06:43 PT 13.9 SECONDS (9.7-12.2) H 03/30/17 23:55 INR 1.2 03/30/17 23:55 APTT 49 SECONDS (21-34) H 03/30/17 23:55 D-Dimer, Quantitative Cancelled 03/30/17 23:55 Puncture Site Rb 04/01/17 04:15 pCO2 31 mm/Hg (35-45) L 04/01/17 04:15 pO2 104 mm/Hg (80-100) H 04/01/17 04:15 HCO3 29.8 mmol/L (21-28) H 04/01/17 04:15 ABG pH 7.57 (7.35-7.45) H 04/01/17 04:15 ABG Total CO2 29.4 mmol/L (22-28) H 04/01/17 04:15 ABG O2 Saturation 97.5 % (95-98) 04/01/17 04:15 ABG Base Excess 6.3 mmol/L (-2.0-3.0) H 04/01/17 04:15 ABG Hemoglobin 10.0 g/dL (11.7-17.4) L 04/01/17 04:15 ABG Carboxyhemoglobin 0.8 % (0.5-1.5) 04/01/17 04:15 POC ABG HHb (Measured) 2.4 % (0.0-5.0) 04/01/17 04:15 ABG Methemoglobin 1.2 % (0.0-3.0) 04/01/17 04:15 Hernandez Test Na 04/01/17 04:15 ABG Potassium 3.3 mmol/L (3.6-5.2) L 03/31/17 05:11 A-a O2 Difference 71.0 mm/Hg 04/01/17 04:15 Respiratory Index 0.7 04/01/17 04:15 Hgb O2 Saturation 95.5 % (95.0-98.0) 04/01/17 04:15 Sodium 144.0 mmol/l (132-148) 03/31/17 05:11 Chloride 115.0 mmol/L (98-107) H 03/31/17 05:11 Glucose 220 mg/dl (65-105) H 03/31/17 05:11 Lactate 2.8 mmol/L (0.7-2.1) H 03/31/17 05:11 Mechanical Rate 14 04/01/17 04:15 FiO2 30.0 % 04/01/17 04:15 Tidal Volume 450 04/01/17 04:15 PEEP 5 04/01/17 04:15 Crit Value Called To Dr. gonzalez 03/31/17 02:34 Crit Value Called By Daniel central aisle cashier 03/31/17 02:34 Crit Value Read Back Y 03/31/17 02:34 Blood Gas Notified Time 238 03/31/17 02:34 Sodium 133 mmol/L (132-148) 04/03/17 06:43 Potassium 3.0 mmol/L (3.6-5.2) L 04/03/17 06:43 Chloride 101 mmol/L (98-107) 04/03/17 06:43 Carbon Dioxide 25 mmol/L (22-30) 04/03/17 06:43 Anion Gap 10 (10-20) 04/03/17 06:43 BUN 8 mg/dL (7-17) 04/03/17 06:43 Creatinine 0.4 MG/DL (0.7-1.2) L 04/03/17 06:43 Est GFR ( Amer) > 60 04/03/17 06:43 Est GFR (Non-Af Amer) > 60 04/03/17 06:43 POC Glucose (mg/dL) 286 mg/dL (65-110) H 03/30/17 23:54 Random Glucose 147 mg/dL (65-105) H 04/03/17 06:43 Hemoglobin A1c 5.5 % (4.2-6.5) 03/31/17 06:51 Calcium 7.3 mg/dl (8.6-10.4) L 04/03/17 06:43 Phosphorus 2.0 mg/dL (2.5-4.5) L 04/02/17 06:24 Magnesium 1.7 mg/dL (1.6-2.3) 04/02/17 06:24 Total Bilirubin 1.6 mg/dL (0.2-1.3) H 04/03/17 06:43 AST 90 U/L (14-36) H D 04/03/17 06:43 ALT 36 U/L (9-52) 04/03/17 06:43 Alkaline Phosphatase 95 U/L (38-126) 04/03/17 06:43 Troponin I 0.0550 ng/mL (0.00-0.120) 03/30/17 23:55 Total Protein 6.2 g/dL (6.3-8.3) L 04/03/17 06:43 Albumin 2.8 g/dL (3.5-5.0) L 04/03/17 06:43 Globulin 3.4 gm/dL (2.2-3.9) 04/03/17 06:43 Albumin/Globulin Ratio 0.8 (1.0-2.1) L 04/03/17 06:43 Arterial Blood Potassium 3.3 mmol/L (3.6-5.2) L 03/31/17 05:11 Urine Color Yellow (YELLOW) 03/31/17 06:29 Urine Clarity Hazy (Clear) 03/31/17 06:29 Urine pH 5.0 (5.0-8.0) 03/31/17 06:29 Ur Specific [place] 1.010 (1.003-1.030) 03/31/17 06:29 Urine Protein 1+ mg/dL (NEGATIVE) H 03/31/17 06:29 Urine Glucose (UA) Normal mg/dL (Normal) 03/31/17 06:29 Urine Ketones Negative mg/dL (NEGATIVE) 03/31/17 06:29 Urine Blood 3+ (NEGATIVE) H 03/31/17 06:29 Urine Nitrate Negative (NEGATIVE) 03/31/17 06:29 Urine Bilirubin Negative (NEGATIVE) 03/31/17 06:29 Urine Urobilinogen 4.0 mg/dL (0.2-1.0) H 03/31/17 06:29 Ur Leukocyte Esterase Trace [place]/uL (Negative) 03/31/17 06:29 Urine WBC (Auto) 12 /hpf (0-5) H 03/31/17 06:29 Urine RBC (Auto) 4 /hpf (0-3) H 03/31/17 06:29 Ur Squamous Epith Cells < 1 /hpf (0-5) 03/31/17 06:29 Urine Bacteria Occ (<OCC) H 03/31/17 06:29 Hyaline Casts 0-2 /lpf (0-2) 03/31/17 06:29 Stool Occult Blood Negative (NEGATIVE) 03/31/17 07:49 Vancomycin Trough 17.2 ug/mL (5.0-10.0) H 04/03/17 06:43 Blood Type A POSITIVE 03/31/17 01:37 Blood Type Confirm A POSITIVE 03/31/17 01:37 Antibody Screen Negative 03/31/17 01:37 Attending/Attestation - Attestation I have personally seen and examined this patient.: Yes I have fully participated in the care of the patient.: Yes I have reviewed all pertinent clinical information, including history, physical exam and plan: Yes Notes (Text): Pt found unresponsive on evening of 03/31. CPR for 15 mins in field, 2 doses of epi given, achieved ROSC. Pt taken to [facility] [place] ED, intubated upon arrival, and placed on ventilator. Pt initially arousable to deep stimuli, with weak cough/ gag, and intact corneal reflex. Over course pts reflexes extinguished. EEG showed severe bihemespheric cerebral dysfunction. Pt had expressed to sons desire to not to 'be kept alive by machine.' Sons agreed to remove pt off life support as meaningful recovery could not be expected.
== END 2017-04-03 14:53 | DRG 208 ==
LOC: C.ER 23:31 → C.9I 03-31 00:38
PROVIDERS: ADMIT Internal Medicine; ATTEND Internal Medicine
PROC: 30233N1 Transfusion of Nonautologous Red Blood Cells into Peripheral Vein, Percutaneous Approach (ICD-10-PCS; principal; 2017-03-31)
PROC: 5A1945Z Respiratory Ventilation, 24-96 Consecutive Hours (ICD-10-PCS; 2017-03-31)
DX: J96.00 Acute respiratory failure, unspecified whether with hypoxia or hypercapnia (principal); I46.9 Cardiac arrest, cause unspecified; N17.9 Acute kidney failure, unspecified; G93.1 Anoxic brain damage, not elsewhere classified; E87.4 Mixed disorder of acid-base balance; E87.1 Hypo-osmolality and hyponatremia; E78.00 Pure hypercholesterolemia, unspecified; D64.9 Anemia, unspecified; E11.65 Type 2 diabetes mellitus with hyperglycemia; E87.6 Hypokalemia; E86.0 Dehydration; Z66 Do not resuscitate; Z51.5 Encounter for palliative care; E78.5 Hyperlipidemia, unspecified; I10 Essential (primary) hypertension; Z86.73 Personal history of transient ischemic attack (TIA), and cerebral infarction without residual deficits; Z80.0 Family history of malignant neoplasm of digestive organs; Z79.899 Other long term (current) drug therapy; Z88.0 Allergy status to penicillin; Z87.891 Personal history of nicotine dependence; Z82.49 Family history of ischemic heart disease and other diseases of the circulatory system; G24.5 Blepharospasm